=== PATIENT | male | born 1940 | race Caucasian/White ===

== ENCOUNTER → 2018-03-15 | Outpatient (CLI) | payer MEDICARE, OTHER ==
[~2018-03-15] MED LIST: IOPAMIDOL 370 MG/ML 200 ML INFUS..BTL INJ ONE; SODIUM CHLORIDE 0.9% 50ML 50 ML ONE
[2018-03-15 15:45] LABS: BASOPHILS % 0.1 % (0.0-1.0); EOSINOPHILS % 0.4 % (0.0-6.0); HEMATOCRIT 40.5 % (38.2-49.6); HEMOGLOBIN 13.6 g/dL (14.0-18.0); LYMPHOCYTES % 10.5 % (18.0-39.1); MEAN CORPUSCULAR HGB CONC 33.6 g/dL (31-35); MEAN CORPUSCULAR VOLUME 89.4 fL (81-99); MONOCYTES # (AUTO) 0.8 (0.2-0.8); MONOCYTES % 8.9 % (4.4-11.3); NEUTROPHILS # (AUTO) 7.5 (2.1-6.9); NEUTROPHILS % 79.7 % (38.7-80.0); PLATELET COUNT 250 x10e3/uL (140-360); RED BLOOD COUNT 4.53 x10e6/uL (4.3-5.7); RED CELL DISTRIBUTION WIDTH 12.6 % (11.7-14.4)
[2018-03-15 16:09] LABS: ALANINE AMINOTRANSFERASE 15 IU/L (0-55); ALBUMIN 3.9 g/dL (3.5-5.0); ALBUMIN/GLOBULIN RATIO 1.4 (0.8-2.0); ALKALINE PHOSPHATASE 100 IU/L (40-150); ANION GAP 14.1 mmol/L (8-16); BLOOD UREA NITROGEN 13 mg/dL (7-26); BUN/CREATININE RATIO 13 (6-25); CALCIUM 11.2 mg/dL (8.4-10.2); CARBON DIOXIDE 24 mmol/L (22-29); CHLORIDE 105 mmol/L (98-107); CREATININE, SERUM 1.02 mg/dL (0.72-1.25); EST GLOMERULAR FILTRATION RATE > 60 ML/MIN (60-); GLUCOSE 99 mg/dL (74-118); POTASSIUM 4.1 mmol/L (3.5-5.1); SODIUM 139 mmol/L (136-145)
--- NOTE | 2018-03-15 16:57 | Diagnostic Imaging Report ---
EXAMINATION: CT of the chest with contrast, PE protocol. TECHNIQUE: Spiral CT images of the chest were performed from the lung apices through the level of the adrenal glands after the IV administration of 100 cc of Isovue-370. Thin section reconstructions were obtained with special concentration on the pulmonary arteries. COMPARISON: <none> CLINICAL HISTORY:Chest pain DISCUSSION: Examination is limited secondary to patient positioning, he was unable to lie flat on his back so he was scanned in the left lateral decubitus position. Vasculature: The main pulmonary artery, right and left pulmonary arteries, and their visualized lobar and segmental branches are patent, without filling defect. There is no ectasia or aneurysmal dilatation of the thoracic aorta. Great vessel origins are normal in caliber and configuration. The pulmonary outflow tract is of normal caliber. Lungs: Left hemidiaphragmatic elevation. No consolidation, bronchiectasis, or suspicious mass lesion. Lingular and left lower lobe subsegmental atelectasis. Calcified granuloma in the right middle lobe . Airways: Trachea, mainstem bronchi, and central lobar and segmental bronchi are patent. Pleura: <There is no evidence of pleural effusion or pneumothorax.> Heart and mediastinum: No right ventricular dilatation or septal bowing. Prominent epicardial fat without pericardial effusion. Atherosclerotic calcification of the left anterior descending coronary artery. Visualized portions of the thyroid gland are unremarkable. No axillary, hilar, or mediastinal lymphadenopathy. Abdomen: Visualized portions of the liver, gallbladder, spleen, pancreas and left kidney are unremarkable. Bilateral adrenal fullness without discrete nodule Bones and soft tissues: No osseous destructive lesions. Degenerative disc changes of the cervical and thoracic spine. No focal soft tissue abnormalities. IMPRESSION: No CT evidence of pulmonary embolus to the level of the segmental branch pulmonary arteries. Left hemidiaphragmatic elevation with subsegmental atelectasis in the left lower lobe. Atherosclerotic vascular disease. Evidence of prior pulmonary granulomatous infection. Findings were discussed by telephone with Dr. Gayle at 4:50 PM 03/15/2018. Signed by: Dr. Rainer Omalley M.D. on 03/15/2018 4:54 PM
== END ==
LOC: CT 15:03
PROVIDERS: ATTEND Internal Medicine Interventional Cardiology
DX: R07.9 Chest pain, unspecified (principal); I26.99 Other pulmonary embolism without acute cor pulmonale
CPT/HCPCS: 36415; 71260; 80053; 85025; Q9967

== ENCOUNTER 2018-05-31 13:49 | Inpatient (IN) | payer MEDICARE, OTHER ==
[~2018-05-31] VITALS: Ht 180.3 cm; Wt 111.7 kg
--- OUTSIDE RECORDS SUMMARY | 2018-05-31 13:51 | XMS REPORT ---
Author Author [facility] Address Unknown Phone Unavailable Care Team Providers Care Corporate Relations Director Name Role Phone ROHAN JAQUEZ Unavailable Unavailable Problems This patient has no known problems. Allergies, Adverse Reactions, Alerts This patient has no known allergies or adverse reactions. Medications This patient has no known medications. Results Test Description Test Time Test Comments Text Results Atomic Results Result Comments CT CHEST W 2018-03-15 16:41:00 [place] [id number] [place] [id number] Patient Name: LEONARD HAGEN MR #: [id number] : 1940 Age/Sex: 77/M Req #: [id number] Adm Physician: Ordered by: ROHAN JAQUEZ MD Report #: [id number] Location: CT Room/Bed: Procedure: [id number] CT/CT CHEST W Exam Date: 03/15/18 Exam Time: 1600 REPORT STATUS: Signed EXAMINATION: CT of the chest with contrast, PE protocol. TECHN IQUE: Spiral CT images of the chest were performed from the lung apices through the level of the adrenal glands after the IV administration of 100 cc of Isovue-370. Thin section reconstructions were obtained with special concentration on the pulmonary arteries. COMPARISON: <none> CLINICAL HISTORY:Chest pain DISCUSSION: Examination is limited secondary to patient positioning, he was unable to lie flat on his back so he was scanned in the left lateral decubitus position. Vasculature: The main pulmonary artery, right and left pulmonary arteries, and their visualized lobar and segmental branches are patent, without filling defect. There is no ectasia or aneurysmal dilatation of the thoracic aorta. Great vessel origins are normal in caliber and configuration. The pulmonary outflow tract is of normal caliber. Lungs: Left hemidiaphragmatic elevation. No consolidation, bronchiectasis, or suspicious mass lesion. Lingular and left lower lobe subsegmental atelectasis. Calcified granuloma in the right middle lobe . Airways: Trachea, mainstem bronchi, and central lobar and segmental bronchi are patent. Pleura: <There is no evidence of pleural effusion or pneumothorax.> Heart and mediastinum: No right ventricular dilatation or septal bowing. Prominent epicardial fat without pericardial effusion. Atherosclerotic calcification of the left anterior descending coronary artery. Visualized portions of the thyroid gland are unremarkable. No axillary, hilar, or mediastinal lymphadenopathy. Abdomen: Visualized portions of the liver, gallbladder, spleen, pancreas and left kidney are unremarkable. Bilateral adrenal fullness without discrete nodule Bones and soft tissues: No osseous destructive lesions. Degenerative disc changes of the cervical and thoracic spine. No focal soft tissue abnormalities. IMPRESSION: No CT evidence of pulmonary embolus to the level of the segmental branch pulmonary arteries. Left hemidiaphragmatic elevation with subsegmental atelectasis in the left lower lobe. Atherosclerotic vascular disease. Evidence of prior pulmonary granulomatous infection. Findings were discussed by telephone with Dr. Jaquez at 4:50 PM 03/15/2018. Signed by: Dr. Victorino Bartholomew M.D. on 03/15/2018 4:54 PM Dictated By: VICTORINO BARTHOLOMEW MD 53 Transcribed By: FRANCIS on 03/15/181653 COPY TO: ROHAN JAQUEZ MD
--- OUTSIDE RECORDS SUMMARY | 2018-05-31 13:51 | XMS REPORT | Clinical Summary ---
Author Author [facility] Organization [facility] Address Unknown Phone Unavailable Care Team Providers Care Clerk Specialist Name Role Phone Asked, No Pcp PCP Unavailable Allergies Not on File Medications Not on file Active Problems Not on file Immunizations Name Dates Previously Given Next Due FLUZONE HIGH-DOSE PF 12/24/2017 Pneumococcal Conjugate 12/04/2016 13-Valent Social History Date Tobacco Use Types Packs/Day Years Used Never Assessed Sex Assigned at Date Recorded Not on file Industry Job Start Date Occupation Not on file Not on file Not on file Travel End Travel History Travel Start No recent travel history available. Last Filed Vital Signs Not on file Plan of Treatment Health Maintenance Due Date Last Done Comments SHINGLES VACCINES (#1) 12/13/1989 PNEUMOCOCCAL 12/13/2004 POLYSACCHARIDE VACCINE AGE 65 AND OVER 65+ PNEUMOCOCCAL VACCINE 12/04/2017 12/04/2016 (2 of 2 - PPSV23) INFLUENZA VACCINE 09/20/2018 12/24/2017 Results Not on fileafter 05/30/2017 Insurance Payer Benefit Subscriber ID Type Phone Address Plan / Group MEDICARE MEDICARE xxxxxxxxxx Medicare [place], [place] PART A AND B CIGNA CIGNA [place]AL[place] xxxxxxxxx HMO Advance Directives Patient has advance care planning documents on file. For more information, marina garsia contact: Rick Stovall [address] [place] [address]
[2018-05-31] MEDS ORDERED: SODIUM CHLORIDE 0.9% 1000ML 1,000 ML IV STA (13:56)
[2018-05-31 14:09] LABS: BASOPHILS % 0.4 % (0.0-1.0); EOSINOPHILS % 0.4 % (0.0-6.0); HEMATOCRIT 42.6 % (38.2-49.6); HEMOGLOBIN 13.9 g/dL (14.0-18.0); LYMPHOCYTES # (AUTO) 1.1 (1.0-3.2); LYMPHOCYTES % 13.6 % (18.0-39.1); MEAN CORPUSCULAR HEMOGLOBIN 29.4 pg (28-32); MEAN CORPUSCULAR HGB CONC 32.6 g/dL (31-35); MEAN CORPUSCULAR VOLUME 90.3 fL (81-99); MONOCYTES # (AUTO) 0.8 (0.2-0.8); MONOCYTES % 9.9 % (4.4-11.3); NEUTROPHILS # (AUTO) 6.3 (2.1-6.9); NEUTROPHILS % 75.5 % (38.7-80.0); PLATELET COUNT 275 x10e3/uL (140-360); RED BLOOD COUNT 4.72 x10e6/uL (4.3-5.7); RED CELL DISTRIBUTION WIDTH 12.8 % (11.7-14.4)
[2018-05-31 14:18] LABS: INR 1.25; PARTIAL THROMBOPLASTIN TIME 31.7 seconds (23.8-35.5); PROTHROMBIN TIME 16.3 seconds (11.9-14.5)
[2018-05-31 14:20] LABS: ABG HCO3 24 mmol/L (23-28); ABG PCO2 39 mmHg (41-51); ABG PH 7.39 (7.31-7.41); ABG PO2 72 mmHg (80-105)
[2018-05-31 14:30] LABS: ALANINE AMINOTRANSFERASE 11 IU/L (0-55); ALBUMIN 3.7 g/dL (3.5-5.0); ALBUMIN/GLOBULIN RATIO 1.1 (0.8-2.0); ALKALINE PHOSPHATASE 98 IU/L (40-150); ANION GAP 9.7 mmol/L (8-16); BLOOD UREA NITROGEN 13 mg/dL (7-26); BUN/CREATININE RATIO 15 (6-25); CALCIUM 11.2 mg/dL (8.4-10.2); CARBON DIOXIDE 28 mmol/L (22-29); CHLORIDE 104 mmol/L (98-107); CREATINE KINASE 72 IU/L (30-200); CREATININE, SERUM 0.89 mg/dL (0.72-1.25); EST GLOMERULAR FILTRATION RATE > 60 ML/MIN (60-); GLUCOSE 101 mg/dL (74-118); POTASSIUM 4.7 mmol/L (3.5-5.1); SODIUM 137 mmol/L (136-145)
--- NOTE | 2018-05-31 18:15 | Diagnostic Imaging Report ---
EXAMINATION: CT of the chest with contrast, PE protocol. TECHNIQUE: Spiral CT images of the chest were performed from the lung apices through the level of the adrenal glands after the IV administration of 100 cc of Isovue-370. Thin section reconstructions were obtained with special concentration on the pulmonary arteries. Patient is unable to lie flat so the procedure was performed in the decubitus position rendering images less than optimal. DLP: 666.42 mGy-cm COMPARISON: 03/15/2018 CLINICAL HISTORY: Shortness of breath. Patient currently being treated for lower extremity DVT. DISCUSSION: Lungs: No filling defects are identified in the main, right or left pulmonary arteries to their segmental and subsegmental levels, to suggest pulmonary embolism. There is scarring in the left lung base. Calcified granuloma in the right middle lobe again noted. Airways: <The major airways are clear.> Pleura: <There is no evidence of pleural effusion or pneumothorax.> Again noted is the significant elevation of the left hemidiaphragm and volume loss involving the left hemithorax. Heart and mediastinum: <The heart and the mediastinum are normal.> Abdomen: <The visualized parts of the upper abdomen are unremarkable.> Bones and soft tissues: <The thoracic skeleton is normal for age. Degenerative changes of the spine. The soft tissues are unremarkable.> IMPRESSION: No evidence of pulmonary emboli or significant interval change from the prior study. Signed by: Dr. Shailesh Paez DO on 05/31/2018 6:12 PM
[2018-05-31] MEDS ORDERED: MORPHINE SULFATE 2 MG/ML SYR 1ML IV PRN (19:15)
[2018-05-31] MEDS ORDERED: ONDANSETRON HCL INJ 2MG/ML 2ML 2 MG/ML VIAL IV PRN (19:15)
[2018-05-31] MEDS ORDERED: NITROGLYCERIN 0.4 MG SUBL SL PRN (19:15)
--- NOTE | 2018-05-31 19:27 | Diagnostic Imaging Report ---
EXAMINATION: CHEST SINGLE (PORTABLE) INDICATION: Shortness of breath ^sob ^[id number] ^1835 ^Y COMPARISON: CT scan 05/31/2018 FINDINGS: TUBES and LINES: None. LUNGS: Perihilar peribronchial hazy opacity could be due to bronchitis. PLEURA: Possible small left pleural effusion. No pneumothorax. HEART AND MEDIASTINUM: The cardiomediastinal silhouette is unremarkable. BONES AND SOFT TISSUES: No acute osseous lesion. Soft tissues are unremarkable. UPPER ABDOMEN: No free air under the diaphragm. IMPRESSION: Perihilar peribronchial hazy opacity could be due to bronchitis. Possible small left pleural effusion Signed by: Dr. Jack Moran M.D. on 05/31/2018 7:24 PM
[2018-05-31] MEDS ORDERED: MORPHINE SULFATE INJ 4 MG/ML INJ 1ML IV PRN (19:30)
[2018-05-31] MEDS: HEPARIN 25,000U/0.45% NS 250ML 1,000 UNIT in Premix Bag 250 ML IV SCH (19:45)
[2018-05-31] MEDS: FAMOTIDINE 20 MG TAB PO SCH (19:47)
--- OUTSIDE RECORDS SUMMARY | 2018-05-31 19:49 | XMS REPORT | Clinical Summary ---
Author Author [facility] Organization [facility] Address Unknown Phone Unavailable Care Team Providers Care Agriculture Research Director Name Role Phone Asked, No Pcp PCP [...] Plan / Group MEDICARE MEDICARE xxxxxxxxxx Medicare [place], [place] PART A AND B CIGNA CIGNA NAL[employer] xxxxxxxxx HMO Advance Directives Patient has advance care planning documents on file. For more information, marina garsia contact: Rick Stovall [address] [place] [address]
--- NOTE | 2018-05-31 20:45 | NUR ---
Pt received from ER. Pt A&O and in no apparent distress. Pt on Heparin drip and tele. All safety measures ensured and pt call fishman near. Pt encouraged to use call fishman for assistance.
[2018-05-31 21:00] VITALS: BP 137/64
[2018-05-31 22:00] VITALS: BP 137/64
--- NOTE | 2018-05-31 22:30 | NUR ---
Pt request aid for sleep. Call placed to Dr. Green. returned call and gave orders for Ambien 10mg po q hs prn.
[2018-05-31] MEDS ORDERED: SODIUM CHLORIDE 0.9% 50ML 50 ML ONE (22:44)
[2018-05-31] MEDS ORDERED: IOPAMIDOL 370 MG/ML 200 ML INFUS..BTL INJ ONE (22:45)
[2018-05-31] MEDS: ZOLPIDEM TARTRATE 10 MG TAB PO PRN (22:47)
[2018-06-01] VITALS (9 sets, daily range): BP systolic 144–188; BP diastolic 67–92
--- NOTE | 2018-06-01 01:19 | Consultation ---
DATE OF CONSULTATION: 05/31/2018 Pulmonary Medicine Consult REASON FOR REFERRAL: Shortness of breath. HISTORY OF PRESENT ILLNESS: Mr. Campa is a pleasant 77-year-old gentleman with shortness of breath. The patient claims he is having worsening dyspnea for the last six weeks. The patient reportedly had a recent DVT noted. It has been gradual onset. The patient is becoming severely dyspneic on walking. He can only walk to the mailbox and back now. 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 The patient denies any gem chest pain at present. For the most part, he was a light smoker in his life. He did have a recent DVT diagnosed. He had a chest CT done on admission showing significant obesity, right hemidiaphragm elevation. I am consulted. No asthma. No allergies. No significant pulmonary illnesses in the past. The patient without large GERD. He has lost 40 pounds in the last six months he says. PAST MEDICAL HISTORY: Hypertension. Deep venous thromboses. 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 MEDICATIONS: Medication list reviewed per the chart record. ALLERGIES: NO KNOWN DRUG ALLERGIES. SOCIAL HISTORY: The patient smoked for seven years, 2.5 packs per day, but quit in 1966. The patient would probably drink about eight drinks per week in the past, but quit long ago. No drug use. 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 FAMILY HISTORY: Noncontributory to this. REVIEW OF SYSTEMS: GENERAL: No malaise. HEENT: No mouth ulcers. ENDOCRINE: No known thyroid disorder. PULMONARY: No hemoptysis. CARDIAC: No recent heart attacks. GI: No constipation. : No blood in the urine. DERMATOLOGIC: No rashes. MUSCULOSKELETAL: Mild arthritis. IMMUNOLOGIC: No known connective tissue disease. NEUROLOGIC: No seizures. OBJECTIVE: VITAL SIGNS: Afebrile, vital signs noted reviewed per the chart record. GENERAL: No acute distress, alert and calm, but he is having tripod a little bit with increased work of breathing. HEENT: Normocephalic, atraumatic. NECK: Supple. Throat midline. LUNGS: Bilateral air entry is moderate, no gem rales, no rhonchi. Some decreased breath sounds at the bases. CARDIOVASCULAR: S1, S2. No murmurs, rubs, or gallops. ABDOMEN: Soft, nontender. EXTREMITIES: No clubbing, no cyanosis, there is 1+ leg edema. INTEGUMENT: No rash. No purpura. LABORATORY DATA: Labs reviewed per the chart record. IMPRESSION AND PLAN: 1. Significant dyspnea, worsened recently. 2. Possible corporal angina, arthrosclerotic vascular disease. 3. Fifteen pack-year smoking history, possible early chronic obstructive pulmonary disease, although less likely. 4. Significant obesity, possible thoracic restriction. 5. Right hemidiaphragm elevation, possible restrictive disorder. 6. History of parathyroid abnormality, not otherwise specified. 7. History of hypertension. 8. History of deep venous thrombosis, on chronic anticoagulation, Xarelto. I agree to have cardiac evaluation and tentatively there is a heart catheterization that is for tomorrow. If no significant coronary artery disease noted, the patient will need a thorough assessment of his metabolic status including thyroid, cortisol, testosterone screening. If these tests are unremarkable, he needs to have dedicated pulmonary function test to assess for restrictive abnormalities and to rule out other abnormalities. Part of the pulmonary assessment could include a V/Q scan based on echocardiographic findings. Furthermore, cardiopulmonary conditioning will be helpful. Thank you very much, Dr. Green for this consult. Please feel free to call me if I can help in any way. MD DAGOBERTO Raymond/INESSA /[id number]
[2018-06-01 03:00] LABS: CREATINE KINASE MB 3.8 ng/mL (0-5.0)
[2018-06-01 03:16] LABS: ANION GAP 11.1 mmol/L (8-16); BLOOD UREA NITROGEN 12 mg/dL (7-26); BUN/CREATININE RATIO 15 (6-25); CALCIUM 10.7 mg/dL (8.4-10.2); CARBON DIOXIDE 26 mmol/L (22-29); CHLORIDE 107 mmol/L (98-107); CHOL/HDL RATIO 3.8 (3.9-4.7); CHOLESTEROL 125 MD/DL (0-199); CREATININE, SERUM 0.79 mg/dL (0.72-1.25); EST GLOMERULAR FILTRATION RATE > 60 ML/MIN (60-); GLUCOSE 97 mg/dL (74-118); HDL CHOLESTEROL 33 MG/DL (40-60); LDL CHOLESTEROL 79 MG/DL (60-130); POTASSIUM 4.1 mmol/L (3.5-5.1); SODIUM 140 mmol/L (136-145); TRIGLYCERIDES 63 MG/DL (0-149)
[2018-06-01 03:47] LABS: FREE THYROXINE INDEX 1.9039 (1.4-3.8); THYROID STIMULATING HORMONE 2.318 uIU/mL (0.350-4.940)
--- NOTE | 2018-06-01 03:48 | NUR ---
Pt PTT 41.2. Per protocol, increased dose by 100 units =11ml/hr. Contacted off site pharmacy to adjust dose but pharmacist unable to change and stated to just write note regarding dosage change. Will ask onsite pharmacy to adjust when they arrive in the am.
[2018-06-01] MEDS: FAMOTIDINE 20 MG TAB PO SCH ×2 (05:03→19:15)
[2018-06-01 07:19] LABS: BASOPHILS % 0.4 % (0.0-1.0); EOSINOPHILS # (AUTO) 0.2 (0.0-0.4); HEMATOCRIT 39.9 % (38.2-49.6); HEMOGLOBIN 12.7 g/dL (14.0-18.0); LYMPHOCYTES # (AUTO) 1.2 (1.0-3.2); LYMPHOCYTES % 16.6 % (18.0-39.1); MEAN CORPUSCULAR HEMOGLOBIN 29.3 pg (28-32); MEAN CORPUSCULAR HGB CONC 31.8 g/dL (31-35); MEAN CORPUSCULAR VOLUME 91.9 fL (81-99); MONOCYTES # (AUTO) 0.9 (0.2-0.8); MONOCYTES % 12.2 % (4.4-11.3); NEUTROPHILS # (AUTO) 5.1 (2.1-6.9); NEUTROPHILS % 68.5 % (38.7-80.0); PLATELET COUNT 227 x10e3/uL (140-360); RED BLOOD COUNT 4.34 x10e6/uL (4.3-5.7); RED CELL DISTRIBUTION WIDTH 12.9 % (11.7-14.4)
--- NOTE | 2018-06-01 07:47 | NUR ---
report given and walking rounds complete
[2018-06-01 07:51] LABS: CREATINE KINASE MB 3.6 ng/mL (0-5.0)
[2018-06-01] MEDS: HEPARIN 25,000U/0.45% NS 250ML 1,000 UNIT in Premix Bag 250 ML IV SCH ×2 (13:37→15:37)
[2018-06-01] MEDS ORDERED: ACETAMINOPHEN 325 MG TAB PO PRN (15:00)
[2018-06-01] MEDS ORDERED: LIDOCAINE HCL 2% LOCAL 20 ML VIAL ONE (16:42)
[2018-06-01] MEDS ORDERED: FENTANYL CITRATE/PF 100MCG/2 ML INJ ONE (16:42)
[2018-06-01] MEDS ORDERED: MIDAZOLAM HCL 2 MG/2 ML VIAL ONE (16:42)
[2018-06-01] MEDS ORDERED: VERAPAMIL HCL 2.5 MG/ML 2 ML VIAL ONE (16:43)
[2018-06-01] MEDS ORDERED: IOPAMIDOL 370 MG/ML 200 ML INFUS..BTL INJ ONE (16:43)
[2018-06-01] MEDS ORDERED: HEPARIN SOD/SOD CHLORIDE 2,000 ML ONE (16:43)
[2018-06-01] MEDS ORDERED: NITROGLYCERIN/D5W 200 MCG/ML 250 ML ONE (16:43)
[2018-06-01] MEDS ORDERED: HEPARIN SOD (PORCINE) 1000 UNIT/ML 30ML ONE (16:43)
[2018-06-01] MEDS ORDERED: SODIUM CHLORIDE 0.9% 1000ML 1,000 ML ONE (16:43)
[2018-06-01] MEDS ORDERED: ONDANSETRON HCL 4 MG ORAL DISINTEGRATING TAB PO PRN (16:45)
[2018-06-01 18:36] LABS: ANION GAP 13.2 mmol/L (8-16); BLOOD UREA NITROGEN 10 mg/dL (7-26); BUN/CREATININE RATIO 12 (6-25); CALCIUM 11.5 mg/dL (8.4-10.2); CARBON DIOXIDE 24 mmol/L (22-29); CHLORIDE 105 mmol/L (98-107); CREATININE, SERUM 0.82 mg/dL (0.72-1.25); EST GLOMERULAR FILTRATION RATE > 60 ML/MIN (60-); GLUCOSE 101 mg/dL (74-118); POTASSIUM 4.2 mmol/L (3.5-5.1); SODIUM 138 mmol/L (136-145)
--- NOTE | 2018-06-01 19:00 | NUR ---
RECEIVED REPORT FROM DAY NURSE. PATIENT IS RESTING COMFORTABLY IN BED. BED IS IN THE LOWEST POSITION AND CALL BROWN IS WITHIN REACH. WILL CONTINUE TO MONITOR PATIENT.
--- NOTE | 2018-06-01 20:06 | Progress Note ---
DATE: 06/01/2018 Pulmonary Medicine Progress Note SUBJECTIVE: Mr. Campa was seen and examined at bedside. He continues with this stable dyspnea compared to yesterday. He is n.p.o. Tentatively, he is consenting for surgery/interventional procedure. REVIEW OF SYSTEMS: No bleeding, no double vision. OBJECTIVE: VITAL SIGNS: Afebrile. Vital signs noted per the chart record. GENERAL: In no acute distress, alert and calm. HEENT: Normocephalic, atraumatic. NECK: Supple. Throat midline. LUNGS: Bilateral air entry, rare rhonchi. CARDIOVASCULAR: S1, S2. No murmurs, rubs, or gallops. ABDOMEN: Soft, nontender. EXTREMITIES: No clubbing, no cyanosis. There is 1+ edema. INTEGUMENT: No rash. No purpura. LABS: 12 BUN, 0.8 creatinine. 7.4 white count, 39 hematocrit, 227 platelets. IMPRESSION AND PLAN: 1. Shortness of breath, not otherwise specified. 2. Former [id number]-rrps smoker, quit long ago. Possible chronic obstructive pulmonary disease. 3. Elevated right hemidiaphragm. Obesity. Possible hypoventilation syndrome. 4. Significant obesity. 5. Hypertension. 6. Possible angina, under evaluation. Remain n.p.o. Heart catheterization shortly. Await TSH test. Await testosterone and cortisol test as well. If there is no easy answer, we will investigate his lung including with spirometry and lung volumes. Empiric treatment for COPD could be considered in the meanwhile, although the patient is waiting for a heart test first. MD DAGOBERTO Raymond/MODL /[id number]
[2018-06-01] MEDS: ZOLPIDEM TARTRATE 10 MG TAB PO PRN (21:24)
--- NOTE | 2018-06-01 21:30 | NUR ---
PATIENTS PTT IS 179. HEPARIN INFUSION WILL BE HELD FOR 60MINUTES PER FACILITY PROTOCOL, THEN RATE WILL BE DECREASED BY 200UNITS/HR AND PTT WILL BE REPEATED IN 6 HOURS.
--- NOTE | 2018-06-01 22:55 | History and Physical ---
HISTORY: A 77-year-old male with past medical history positive for hypertension, history of DVT. Apparently, he has been having shortness of breath over the last two months, which is getting worse every day. Dr. Gayle sent him to the emergency room. He is going to have a cardiac cath today. CT of the chest showed no evidence of any pulmonary embolism. REVIEW OF SYSTEMS: CARDIOVASCULAR: No chest pain or palpitation. RESPIRATORY: He has had shortness of breath. No cough. GASTROINTESTINAL: No nausea, no vomiting, no diarrhea. GENITOURINARY: No frequency. No dysuria. ALLERGIES: HE IS NOT ALLERGIC TO ANY MEDICATION. SOCIAL HISTORY: He used to smoke, he quit several years ago. He does not drink alcohol. PAST MEDICAL HISTORY: Positive for history of hypertension, DVT, and obesity. PHYSICAL EXAMINATION: VITAL SIGNS: Blood pressure 176/76, temperature 96.2, heart rate 71 per minute, respiratory rate 20 per minute, oxygen saturation 97%. HEART: Showed regular rhythm. No murmur or added sound. LUNGS: Clear bilaterally ABDOMEN: Soft. EXTREMITIES: No evidence of cyanosis or hematoma. LABORATORY DATA: BMP, sodium 140, potassium 4.1, chloride 107, CO2 of 26, BUN 12, creatinine 0.79, glucose 97. CBC, white blood count 7.47, hemoglobin 12.7, hematocrit 39.9, platelet count 227,000. PT 16.3, INR 1.25, PTT 31.9. AST 17, ALT 11, total bilirubin 0.5, alkaline phosphatase 98. CT of the chest showed no evidence of pulmonary embolism. Also, EKG was done, it showed evidence of normal sinus rhythm, left . No evidence of any other significant abnormalities. IMPRESSION: 1. Shortness of breath. Rule out cardiac origin for shortness of breath. 2. Hypertension. 3. History of deep vein thrombosis. PLAN OF TREATMENT: The patient is going to continue nitroglycerin 0.5 mg q.5 minutes p.r.n. for chest pain, Pepcid 20 mg twice a day, Zofran 4 mg q.4 hours as needed, Ambien 10 mg at nighttime, morphine 2 mg IV q.3 hours as needed, antihypertensive medications. Also, the patient going to go for cardiac cath today by Dr. Gayle, manager sales training. MD MOMO Rosenberg/INESSA /[id number]
[2018-06-02] VITALS (8 sets, daily range): BP systolic 131–185; BP diastolic 70–81
--- NOTE | 2018-06-02 00:20 | Consultation ---
DATE OF CONSULTATION: 06/01/2018 Cardiology Consultation REASON FOR CONSULTATION: Dyspnea. HISTORY OF PRESENT ILLNESS: This is a 77-year-old man with history of hypertension, who presents with complaints of worsening dyspnea on exertion. The patient reports he has been short of breath for the last few months with progressive shortness of breath in the last month. He has had worsening dyspnea on exertion with activity as well. On Monday, he was mowing his lawn when he became significantly dyspneic. He sat down, attempted to rest, but his dyspnea did not improve. He, therefore, presented to the clinic and was instructed to proceed to the ER for further evaluation. The patient denies any chest pain, but does endorse occasional palpitations. REVIEW OF SYSTEMS: Negative, except as per HPI. PAST MEDICAL HISTORY: 1. Hypertension. 2. Acute right distal posterior tibial vein deep thrombosis. 3. History of parathyroid abnormality, details unclear. PAST SURGICAL HISTORY: Back surgery. ALLERGIES: PLEASE SEE EMR. MEDICATIONS: Please see medication list. SOCIAL HISTORY: Denies alcohol or illicit drugs. He quit smoking in 1966, but did smoke two packs a day for 10 years prior to quitting. FAMILY HISTORY: Denies family history of heart disease. PHYSICAL EXAMINATION: VITAL SIGNS: Temperature 96.7 degrees, pulse 53, respiratory rate 21, blood pressure 168/79, oxygen saturation 97% on 2 L nasal cannula. GENERAL: Well-developed, well-nourished man. HEENT: Normocephalic, atraumatic. Pupils equal. No scleral icterus. NECK: Supple. No thyromegaly or cervical lymphadenopathy. No carotid bruits. LUNGS: Clear to auscultation. No wheezes or crackles. Tachypneic. CARDIOVASCULAR: Normal rate, regular rhythm. No murmur. Normal S1, S2. ABDOMEN: Soft, nontender. EXTREMITIES: 1+ pitting edema. NEUROLOGIC: Nonfocal exam. LABORATORY DATA: WBC 7.47, hemoglobin 12.7, hematocrit 39.9, platelets 227. Sodium 140, potassium 4.1, chloride 107, CO2 26, BUN 12, creatinine 0.79, troponin 0.013. CT chest, no evidence of PE or significant interval change from the prior study. EKG, normal sinus rhythm, cannot rule out inferior infarct, age undetermined. Cannot rule out anterior infarct, age undetermined. IMPRESSION: 1. Dyspnea on exertion. 2. Hypertension. 3. History of right posterior tibial vein deep vein thrombosis, diagnosed in February 2018. RECOMMENDATION: The patient ruled out for myocardial infarction with serial cardiac biomarkers. The patient had echocardiogram performed in the office earlier this year with normal LV size, but moderate concentric left ventricular hypertrophy, normal LV systolic function, EF between 55 and 60%. Estimated RVSP was normal. The patient was offered a cardiac stress test, but the patient declined as he did not feel he would be capable of performing treadmill exercise and he refused pharmacologic stress. Plan to proceed with cardiac catheterization today. Maintain n.p.o. status. Further recommendations pending test results. Thank you for this consult. We will continue to follow. Hawa Chow MD ABS/MODL /[id number]
[2018-06-02] MEDS: HYDRALAZINE HCL 10 MG TAB PO PRN (00:23)
--- NOTE | 2018-06-02 04:10 | NUR ---
PATIENT'S PTT IS 84.6. HEPARIN INFUSION RATE WILL BE DECREASED BY 100UNITS/HR AND PTT WILL BE RECHECKED IN 6HOURS ACCORDING TO FACILITY PROTOCOL.
--- NOTE | 2018-06-02 07:02 | NUR ---
report given to day nurse. patient is resting in bed. call fishman is within reach.
[2018-06-02] MEDS: AMLODIPINE BESYLATE 5 MG TAB PO SCH (08:37)
[2018-06-02] MEDS: FAMOTIDINE 20 MG TAB PO SCH ×2 (08:37→18:27)
--- NOTE | 2018-06-02 11:37 | Progress Note ---
DATE: Cardiology Progress Note SUBJECTIVE: The patient is without any new complaints. However, he continues to endorse some shortness of breath that is worse with exertion. Denies any chest pain or palpitations. OBJECTIVE: VITAL SIGNS: Temperature 96.7, pulse 87, respiratory rate 23, blood pressure 131/79, and oxygen saturation 98% on 2 L nasal cannula. CARDIOVASCULAR MEDICATIONS: Pepcid 20 mg p.o. q.12 hours, amlodipine 5 mg p.o. daily, hydralazine 10 mg q.8 hours p.r.n., heparin IV drip, nitroglycerin 0.4 mg q.5 minutes p.r.n. for chest pain. LABORATORY DATA: PTT 84.4. PHYSICAL EXAMINATION: GENERAL: Alert and oriented x3. Resting comfortably on the side of the bed. Son at the bedside. NECK: Supple. No JVD noted. LUNGS: Diminished breath sounds, posterior lower lobes, otherwise clear to auscultation. No wheezing. No rhonchi or crackles. CARDIOVASCULAR: Regular rate and rhythm. Normal S1, S2. No murmurs noted. ABDOMEN: Rounded, soft, nontender. EXTREMITIES: Lower extremity, 1+ pitting edema. Telemetry, sinus rhythm. IMPRESSION: 1. Dyspnea on exertion. 2. History of a right posterior tibial vein DVT diagnosed in February of 2018. 3. Hypertension. RECOMMENDATIONS: Cardiac enzymes have ruled out acute coronary syndrome at this point. The patient had an echocardiogram performed in our office early this year with normal LV size, but moderate concentric left ventricular hypertrophy, normal LV systolic function, EF noted to be 55%-60%. Right ventricular systolic pressures were normal. Plan to proceed with cardiac catheterization on Monday, the this time with Anesthesia. Attempt of left heart catheterization was done yesterday, however, the patient was not able to tolerate to lay down. He will be on n.p.o. status on Monday night. Continue to monitor on telemetry. Continue care with catering administrative assistant. We will continue to follow very closely. Dictated by Annabella Amaya NP MD ODILIA Young/INESSA /[id number]
--- NOTE | 2018-06-02 11:45 | NUR ---
Requested inpatient order, as pt was too unstable for heart cath 06/01. To have heart cath Sunday 06/04. Awaiting reply.
--- NOTE | 2018-06-02 12:20 | NUR ---
RECEIVED INPATIENT ORDER
[2018-06-02] MEDS ORDERED: FUROSEMIDE INJ 10 MG/ML 4 ML VIAL IV ONE (15:00)
--- NOTE | 2018-06-02 16:08 | Progress Note ---
DATE: Internal Medicine Progress Note SUBJECTIVE: The patient is still complaining of shortness of breath. OBJECTIVE: VITAL SIGNS: Blood pressure 131/79, temperature 96.7, heart rate 63 per minute, respiratory rate 20 per minute, and oxygen saturation 97%. HEART: Regular rhythm. No murmur or added sound. LUNGS: Clear bilaterally. ABDOMEN: Soft. EXTREMITIES: Show no evidence of cyanosis, edema, or trauma. LABORATORY DATA: On the BMP; sodium 138, potassium 4.2, chloride 105, CO2 24, BUN 10, creatinine 0.82, glucose 101. On the CBC, white blood count 7.47, hemoglobin 12.7, hematocrit 39.9, and platelet count 227,000. PT 16.3, INR 1.25, PTT 34.7. FINAL IMPRESSION: 1. Episode of shortness of breath of unclear etiology, rule out coronary artery disease. 2. Hypertension. 3. Deep vein thrombosis of the legs. 4. Obesity. 5. Hypercalcemia, which apparently he has been diagnosed before. PLAN OF TREATMENT: We are going to give normal saline at 175 mL an hour. We are going to give Lasix 40 mg IV one time. Repeat BMP tomorrow. PTH is going to be ordered. Also consult Dr. Valera from Endocrinology. Continue on Norvasc 5 mg daily, hydralazine 10 mg q.8 hours as needed, and Ambien 10 mg at night p.r.n. for sleep. We are going to start him on lisinopril 10 mg daily. Cardiac cath on Monday. MD MOMO Rosenberg/INESSA /[id number]
[2018-06-02] MEDS: HEPARIN 25,000U/0.45% NS 250ML 1,000 UNIT in Premix Bag 250 ML IV SCH ×3 (16:14→23:26)
[2018-06-02] MEDS: SODIUM CHLORIDE 0.9% 1000ML 1,000 ML IV SCH (16:32)
[2018-06-02] MEDS: LISINOPRIL 10 MG TAB PO SCH (16:32)
[2018-06-02 18:57] LABS: FREE T4 (FREE THYROXINE) 1.06 ng/dL (0.9-1.8); THYROID STIMULATING HORMONE 1.935 uIU/mL (0.350-4.940)
--- NOTE | 2018-06-02 20:40 | Progress Note ---
DATE: 06/02/2018 Internal Medicine Progress Note. SUBJECTIVE: Mr. Campa was seen and examined at bedside. He is eating well. He had a bowel movement. He is on heparin IV at this time. We were not able to do left heart catheterization yesterday as he was feeling restless. REVIEW OF SYSTEMS: No bleeding, no diarrhea. OBJECTIVE: VITAL SIGNS: Afebrile, vital signs noted per the chart record. GENERAL: In no acute distress. Alert and calm. HEENT: Normocephalic, atraumatic. NECK: Supple. Throat midline. LUNGS: Bilateral air entry, decreased breath sounds at the bases. CARDIOVASCULAR: S1, S2. No murmurs, rubs, or gallops. ABDOMEN: Soft, nontender. EXTREMITIES: No clubbing, no cyanosis. There is 1+ edema. INTEGUMENT: No rash. No purpura. LABORATORY DATA: No new updates. IMPRESSION AND PLAN: 1. Shortness of breath. Under investigation. 2. for possible acute coronary syndrome/stable angina. 3. Obesity, morbid. 4. Elevated right hemidiaphragm. 5. Obstructive sleep apnea, possible. 6. A 21-gfcc-lyio smoker, can't rule out concomitant airway dysfunction. 7. Allergies, can't rule out asthma. Continue at this time. Await left heart catheterization. The patient will have continued followup of some of the hormonal indices. If between the heart evaluation and the hormonal indices, there is no easy explanation of patient's dyspnea, then consideration for a detailed lung evaluation will be indicated. Continue heparin IV per facs teacher. We wait progress in left heart catheterization results. If patient had difficulty laying flat, then he may need BiPAP or anesthesia support for any heart catheterization as deemed necessary by Anesthesia. MD DAGOBERTO Raymond/INESSA /[id number]
[2018-06-02] MEDS: ZOLPIDEM TARTRATE 10 MG TAB PO PRN (23:26)
--- NOTE | 2018-06-02 23:47 | NUR ---
patients ptt is 69.3. will repeat ptt in 6 hours according to facility protocol.
--- NOTE | 2018-06-03 00:11 | Consultation ---
DATE OF CONSULTATION: 06/02/2018 Endocrine Consultation This is the patient of Dr. Green. Thank you very much for referring this patient. HISTORY OF PRESENT ILLNESS: This is a 77-year-old white male gentleman, who is referred to me for evaluation of hypercalcemia. According to the patient, he was diagnosed of hypercalcemia about 6 to 8 months back. He was seen by another loading unit operator and was told that the patient has hyperparathyroidism. The patient was advised followup only. At this time, the patient comes to the hospital with history of shortness of breath, which is getting progressively worse. The patient is admitted to the hospital for further evaluation. The patient also has history of hypertension. He is a nonsmoker. He is being evaluated for coronary artery disease. The patient is a nonsmoker. His other routine medications at home include hydralazine for hypertension and ramipril. He is also on amlodipine 5 mg once daily. The patient does not have any history of kidney stones and no family history of hypercalcemia. PHYSICAL EXAMINATION: GENERAL: Today, the patient is alert, awake, little bit apprehensive, is moderately overweight. VITAL SIGNS: His heart rate is around 78, blood pressure is 185/81 mmHg. HEENT: Essentially unremarkable. Thyroid is palpable. Clinically, he is near euthyroid. CHEST: Bilateral vesicular breathing. He has mild bronchospasm. CARDIAC: First and second heart sounds. There is no third or fourth heart sound. . EXTREMITIES: The patient has evidence of mild pedal edema. LABORATORY DATA: Calcium levels are 11.5. His BUN and creatinine are 10 and 0.82. CLINICAL IMPRESSION: 1. Hypercalcemia, probably related to hyperparathyroidism. 2. Shortness of breath, rule out chronic obstructive pulmonary disease. 3. Coronary artery disease, rule out congestive cardiac failure and hypertension. PLAN: The plan at this time is to do serum PTH and ionized calcium. Monitor his calcium levels for now. The patient is being evaluated by the Pulmonary and the cardiac workup is in progress. Thanks again for referring this patient. I will be following this patient with you. MD ROGELIO Menjivar/INESSA /[id number]
[2018-06-03 04:10] VITALS: BP 172/73
--- NOTE | 2018-06-03 05:34 | NUR ---
patients ptt is 63.8. ptt will be rechecked daily from now on in line with facility protocols.
[2018-06-03 06:31] LABS: ANION GAP 9.5 mmol/L (8-16); BLOOD UREA NITROGEN 11 mg/dL (7-26); BUN/CREATININE RATIO 13 (6-25); CALCIUM 10.9 mg/dL (8.4-10.2); CARBON DIOXIDE 28 mmol/L (22-29); CHLORIDE 104 mmol/L (98-107); CREATININE, SERUM 0.83 mg/dL (0.72-1.25); EST GLOMERULAR FILTRATION RATE > 60 ML/MIN (60-); GLUCOSE 88 mg/dL (74-118); POTASSIUM 3.5 mmol/L (3.5-5.1); SODIUM 138 mmol/L (136-145)
--- NOTE | 2018-06-03 06:56 | NUR ---
report given to day nurse. patient is resting comfortably in bed. bed is in lowest position and call light is within reach.
[2018-06-03 08:34] VITALS: BP 148/84
[2018-06-03] MEDS: ESCITALOPRAM OXALATE 10 MG TAB PO SCH (08:48)
[2018-06-03] MEDS: AMLODIPINE BESYLATE 5 MG TAB PO SCH (08:48)
[2018-06-03] MEDS: FAMOTIDINE 20 MG TAB PO SCH ×2 (08:48→18:45)
[2018-06-03] MEDS: LISINOPRIL 10 MG TAB PO SCH (08:49)
[2018-06-03] MEDS ORDERED: RAMIPRIL 5 MG CAP PO SCH (09:00)
[2018-06-03 09:01] VITALS: BP 148/84
[2018-06-03] MEDS ORDERED: BUSPIRONE HCL 5 MG TAB PO PRN (12:30)
[2018-06-03] MEDS: SODIUM CHLORIDE 0.9% 1000ML 1,000 ML IV SCH (12:35)
--- NOTE | 2018-06-03 12:57 | Progress Note ---
DATE: Internal Medicine Progress Note SUBJECTIVE: A 77-year-old male came in with shortness of breath. He has elevated left hemidiaphragm, but no evidence of any pulmonary embolism. We need to rule out any cardiac source of his shortness of breath. Dr. Gayle will do a cardiac cath tomorrow. The patient is having a lot of anxiety. We are going to be get his anxiety medication. PHYSICAL EXAMINATION: VITAL SIGNS: Blood pressure is 148/84, temperature 36.9, heart rate 82 per minute, respiratory rate 22 per minute, oxygen saturation 95%. HEART: Showed regular rhythm. No murmur or added sound. LUNGS: Clear bilaterally. LABORATORY DATA: On BMP; sodium 138, potassium 3.5, chloride 104, CO2 28, BUN 11, creatinine 0.83, glucose 88. On the CBC, white blood count 7.47, hemoglobin 12.7, hematocrit 39.9, platelet count 227,000. PT 16.3, INR 1.25, PTT 63.8. AST 17, ALT 11, total bilirubin 0.5, alkaline phosphatase of 98. FINAL IMPRESSION: 1. Episode of shortness of breath of unclear etiology. Rule out coronary artery disease. Elevated left hemidiaphragm might play a role on that. 2. Hypertension. 3. History of deep vein thrombosis in the legs. 4. Obesity. 5. Hypercalcemia, most likely secondary to hyperparathyroidism. PLAN OF TREATMENT: The patient is going for cardiac cath tomorrow. Continue amlodipine 5 mg daily, Lexapro 10 mg daily, hydralazine 10 mg IV q.8 hours as needed, morphine 2 mg IV q.3 hours as needed, Pepcid 20 mg twice a day, lisinopril 10 mg daily, Tylenol 325 mg q.4 hours as needed, Zofran 4 mg IV q.4 hours as needed, Ambien 10 mg at night p.r.n. for sleep and also we are going to give him some BuSpar 5 mg q.8 hours as needed for anxiety. MD MOMO Rosenberg/INESSA /[id number]
[2018-06-03 13:08] VITALS: BP 182/76
--- NOTE | 2018-06-03 15:35 | NUR ---
CALLED AND SPOKE TO MARIA TERESA QUEEN REGARDING PARATHYROID SCAN, HE DOES NOT WANT IT STAT SO IT OKAY TO WAIT TO TO THE SCAN UNTIL 06/03/18.
[2018-06-03] MEDS: HYDRALAZINE HCL 10 MG TAB PO PRN (16:26)
[2018-06-03 16:38] VITALS: BP 199/92
[2018-06-03] MEDS: CLONAZEPAM 1 MG TAB PO PRN ×2 (17:10→23:38)
--- NOTE | 2018-06-03 19:00 | NUR ---
received report from day nurse. patient is resting comfortably in bed. bed is in lowest position and call fishman is within reach. will continue to monitor patient.
--- NOTE | 2018-06-03 19:00 | NUR ---
patients heparin drip has been stopped in preparation for heart catherization procedure that is planned for the morning.
--- NOTE | 2018-06-03 19:44 | Progress Note ---
DATE: 06/03/2018 Pulmonary Medicine Progress Note SUBJECTIVE: Mr. Campa was seen and examined at bedside. 3 L/minute by nasal cannula oxygen. Heparin IV. Normal saline at 75 mL/h. The patient continues with slow progress. Some anxiety is cited. REVIEW OF SYSTEMS: No headache, no rash. OBJECTIVE: VITAL SIGNS: Afebrile, vital signs noted per the chart record. GENERAL: In no acute distress, alert and calm. HEENT: Normocephalic, atraumatic. NECK: Supple. Throat midline. LUNGS: Bilateral air entry with decreased breath sounds at the bases. CARDIOVASCULAR: S1, S2. No murmurs, rubs, or gallops. ABDOMEN: Soft, nontender. EXTREMITIES: No clubbing, no cyanosis. There is 1+ edema. INTEGUMENT: No rash. No purpura. LABORATORY DATA: 3.5 potassium, 0.8 creatinine. 8 white count, 39 hematocrit. IMPRESSION AND PLAN: 1. Shortness of breath, multifactorial. 2. Obesity, possible obesity and early hypoventilation. 3. Former [id number] smoking, possible chronic obstructive pulmonary disease. 4. History of seasonal allergies, possible asthma. 5. Anxiety. 6. acute coronary syndrome. Continue heparin IV. The patient to go for heart catheterization tomorrow with anesthesia support to help him lie flat. The patient with normal TSH so far. Testosterone level remains pending at this time as well as cortisol level. We will consider need for pulmonary function testing done. MD DAGOBERTO Raymond/MODL /[id number]
[2018-06-03 20:00] VITALS: BP_SYST 184; BP_SYST 186; BP_DIAS 81
[2018-06-03] MEDS: ZOLPIDEM TARTRATE 10 MG TAB PO PRN (23:38)
[2018-06-04] VITALS (11 sets, daily range): BP systolic 139–188; BP diastolic 69–91
--- NOTE | 2018-06-04 05:30 | NUR ---
son states father has finally fallen asleep and does not want to disturb him. son is requesting that hibiclens bath be pushed back a little more.
[2018-06-04] MEDS: CLONAZEPAM 1 MG TAB PO PRN ×2 (06:35→14:20)
[2018-06-04] MEDS: HYDRALAZINE HCL 10 MG TAB PO PRN (06:35)
--- NOTE | 2018-06-04 06:57 | NUR ---
report given to day nurse. patient is resting comfortably in bed. bed is in lowest position and call light is within reach.
[2018-06-04] MEDS ORDERED: SODIUM CHLORIDE 0.9% 1000ML 1,000 ML ONE (07:15)
[2018-06-04] MEDS ORDERED: LIDOCAINE HCL 2% LOCAL 20 ML VIAL ONE (07:15)
[2018-06-04] MEDS ORDERED: HEPARIN SOD/SOD CHLORIDE 2,000 ML ONE (07:15)
[2018-06-04] MEDS ORDERED: HEPARIN SOD (PORCINE) 1000 UNIT/ML 30ML ONE (07:15)
[2018-06-04] MEDS ORDERED: NITROGLYCERIN/D5W 200 MCG/ML 250 ML ONE (07:15)
[2018-06-04] MEDS: FAMOTIDINE 20 MG TAB PO SCH (07:15)
[2018-06-04] MEDS ORDERED: IOPAMIDOL 370 MG/ML 200 ML INFUS..BTL INJ ONE (07:15)
--- NOTE | 2018-06-04 07:27 | NUR ---
patient leaving the unit for Cath procedure, alert and oriented and on hospital bed. Sons at bedside
[2018-06-04] MEDS ORDERED: VERAPAMIL HCL 2.5 MG/ML 2 ML VIAL ONE (08:04)
--- NOTE | 2018-06-04 08:45 | Progress Note ---
DATE: Cardiology Progress Note SUBJECTIVE: The patient is without any new complaints this morning. He does still endorse some shortness of breath, but denies any calf pain. CARDIOVASCULAR MEDICATIONS: Lisinopril 10 mg p.o. daily, 5 mg of amlodipine p.o. daily, Pepcid 20 mg q.12 hours, heparin IV drip, hydralazine 10 mg q.8 hours p.r.n. for blood pressure, nitroglycerin as needed for chest pain. PTT 63.8. OBJECTIVE: VITAL SIGNS: Temperature 96.9, pulse 82, respiratory rate 22, blood pressure 148/84, oxygen saturation 95% on room air. GENERAL: Alert and oriented x3. Resting comfortably on the side of the bed. Does not appear to be in any acute distress. NECK: Supple. No JVD noted. CARDIOVASCULAR: Regular rate and rhythm. Normal S1, S2. No murmurs, no gallops noted. LUNGS: Diminished breath sounds posterior lower lobes, otherwise clear to auscultation. No wheezing. No rhonchi or crackles. ABDOMEN: Rounded, nontender. EXTREMITIES: Lower extremities; trace edema bilaterally. LABORATORY DATA: Telemetry; sinus rhythm with infrequent PVCs. IMPRESSION: 1. Hypertension. 2. History of right posterior tibial deep venous thrombosis in February of 2018. 3. Dyspnea on exertion. RECOMMENDATIONS: Cardiac enzymes have ruled out acute coronary syndrome. Echocardiogram recently obtained in our office this year with normal LV function, but moderate left ventricular hypertrophy. EF noted to be 55 to 60. Right ventricular systolic pressures were normal. Plan is to proceed with left heart catheterization on Monday the with Anesthesia on board. N.p.o. at midnight. Discontinue heparin drip 12 hours prior to procedure. Repeat PTT after. We will continue to monitor the patient. Dictated by THEO SMITH, CHARISSE MD JACQUELINE Young/INESSA /[id number]
[2018-06-04] MEDS ORDERED: LISINOPRIL 20 MG TAB PO SCH (10:00)
--- NOTE | 2018-06-04 10:15 | NUR ---
report received from Joslyn, patient groggy, but answering appropriately. Vital signs are stable. Right wrist used for cath procedure, with no interventions done, no hematoma or drainage noted. Patient will return to floor via hospital bed with family at bedside.
[2018-06-04] MEDS: ESCITALOPRAM OXALATE 10 MG TAB PO SCH (10:30)
[2018-06-04] MEDS: AMLODIPINE BESYLATE 5 MG TAB PO SCH (10:30)
--- NOTE | 2018-06-04 12:00 | NUR ---
patient POC glucose in lab report is not for this patient, disregard.
--- NOTE | 2018-06-04 14:00 | NUR ---
patient leaving the unit via wheelchair to nuclear medicine for scan, alert and oriented. family at bedside.
--- NOTE | 2018-06-04 14:52 | Progress Note ---
DATE: 06/04/2018 Cardiology Progress Note SUBJECTIVE: The patient was sedated after cath. No history could be obtained. OBJECTIVE: VITAL SIGNS: Temperature 98.4 degrees, pulse 86, respiratory 16, blood pressure 154/78, oxygen saturation 100% on 3 L nasal cannula. GENERAL: Well-developed, well-nourished man, sedated. LUNGS: Clear to auscultation bilaterally. No wheeze or crackles. CARDIOVASCULAR: Normal rate, regular rhythm. No murmur. Normal S1, S2. ABDOMEN: Soft, nontender. EXTREMITIES: No edema. CARDIAC MEDICATIONS: Lisinopril 20 mg p.o. daily, amlodipine 5 mg p.o. daily. LABORATORY DATA: None today. TELEMETRY: Normal sinus rhythm. IMPRESSION: 1. Hypertension. 2. History of right posterior tibial vein DVT in February 2018. 3. Dyspnea on exertion. RECOMMENDATION: The patient ruled out for myocardial infarction with serial cardiac biomarkers. Echocardiogram demonstrated normal LV function, but moderate LVH at the office. EF was 55% to 60%. RV pressures were normal. The patient's cardiac catheterization was without significant coronary artery disease, but hyperdynamic LV. We will discontinue amlodipine and start his verapamil. No further cardiac evaluation is indicated at this time. Thank you for this consult. We will continue to follow. Hawa Chow MD ABS/MODL /[id number]
--- NOTE | 2018-06-04 15:03 | NUR ---
patient returned to the floor via wheelchair, alert and oriented with family at bedside.
[2018-06-04] MEDS ORDERED: CLONAZEPAM 1 MG TAB PO PRN (15:45)
--- NOTE | 2018-06-04 16:30 | NUR ---
patient evaluated for the need of home oxygen, however patient refused to ambulate for respiratory therapist. Patient and family was re-educated on the purpose of the home O2 evaluation, and they verbalized understanding.
[2018-06-04] MEDS ORDERED: HYDRALAZINE HCL 25 MG TAB PO SCH ×2 (17:00→21:00)
[2018-06-04] MEDS ORDERED: LISINOPRIL10 MG PO (17:11)
[2018-06-04] MEDS ORDERED: VERAPAMIL ER120 MG PO (17:11)
[2018-06-04] MEDS ORDERED: KLONOPIN2 MG PO (17:12)
[2018-06-04] MEDS ORDERED: PHENYLEPHRINE HCL 1% 10 MG/ML VIAL ONE (17:36)
[2018-06-04] MEDS ORDERED: LIDOCAINE HCL 2% LOCAL INJ 5 ML SDV VIAL INJ ONE (17:36)
[2018-06-04] MEDS ORDERED: VASOPRESSIN INJ 20 UNIT/ML VIAL ONE (17:36)
[2018-06-04] MEDS ORDERED: PROPOFOL IV EMULSION 10 MG/ML 20 ML VIAL ONE (17:36)
--- NOTE | 2018-06-04 17:40 | NUR ---
patient alert and oriented with sons at bedside. Discharge instructions given to patient at this time, verbalized understanding. IV discontinued, catheter in tact and pressure dressing applied. patient to be wheeled out to personal auto for sons to drive home.
--- NOTE | 2018-06-05 03:05 | Progress Note ---
DATE: 06/04/2018 SUBJECTIVE: Mr. Campa was seen and examined at bedside. encouraged him after left heart catheterization findings. Left heart catheterization performed via right arterial insertion site. No complications. A 10-20% coronary artery disease maximum, mostly clear coronaries. Greater than 70% LVEF. The patient able to start eating and after. REVIEW OF SYSTEMS: No headaches. OBJECTIVE: VITAL SIGNS: Afebrile, vital signs noted per the chart record. GENERAL: In no acute distress, alert and calm. HEENT: Normocephalic, atraumatic. NECK: Supple. Throat midline. LUNGS: Bilateral air entry, limited air entry, especially at the bases. CARDIOVASCULAR: S1, S2. No murmurs, rubs, or gallops. ABDOMEN: Soft, nontender. EXTREMITIES: No clubbing, no cyanosis. There is 1+ edema. INTEGUMENT: No rash. No purpura. LABORATORY DATA: Potassium 2.5, creatinine 0.8. White count 8, hematocrit 39. IMPRESSION AND PLAN: 1. Dyspnea, probably multifactorial. 2. Morbid obesity. 3. Significant right hemidiaphragm elevation. 4. Possible hypoventilation obesity syndrome. 5. Hypoxemia. 6. Anxiety component. 7. History of thyroid abnormality. Await test of hormonal access. Home oxygen evaluation. Of note, patient may be refusing to walk with therapist. I reassured him regarding his coronary findings, which are excellent. Consideration may need to go for parathyroid removal. The patient did smoke 15-pack years. We will need outpatient PFTs. He will follow up as an outpatient. MD DAGOBERTO Raymond/MODL /[id number]
--- NOTE | 2018-06-05 06:11 | Discharge Summary ---
HISTORY OF PRESENT ILLNESS: This is a 77-year-old male with past medical history positive for hypertension and history of DVT, came here with shortness of breath, which has been going on for months. Dr. Gayle did a cardiac cath, came back negative. He has only very minimal coronary artery disease. The CT of the abdomen showed evidence of elevated left hemidiaphragm including with volume loss on the left hemithorax and hypertension, which now is 130/80 much better the patient continued clonazepam. The patient has also anxiety. PHYSICAL EXAMINATION: HEART: Showed regular rhythm. Normal S1, S2 sound. LUNGS: Clear bilaterally. ABDOMEN: Soft. Oxygen saturation on room air is 95% and 100% oxygen also on [address] Vega has been consulted from pulmonary point of view, Dr. Gayle from the cardiology point of view. The patient is going home today after the nuclear medicine test for the parathyroid. He was incidentally found to have hyperparathyroidism, which he was diagnosed long time ago, but he never really followed up. FINAL IMPRESSION: 1. Shortness of breath, most likely secondary to elevated left hemidiaphragm. 2. Mild coronary artery disease. 3. Essential hypertension. 4. Obesity. 5. History of deep vein thrombosis. PLAN OF TREATMENT: The patient going to be discharged home after nuclear medicine test for the parathyroid on the following medications. He is going to be on lisinopril 20 mg daily. He is going to be on verapamil 240 mg daily, Klonopin 2 mg q.8 hours as needed for anxiety. Follow up with Dr. Diogenes Dietrich, his primary care physician. oxygen is 95% on room air. He refused to do the walking test for the oxygen. He was . Discharge followup with Dr. Valera, irs agent, and Dr. Vega for Pulmonary. Discharge if okay with the consultants. MD MOMO Rosenberg/INESSA /[id number]
[2018-06-05] MEDS ORDERED: VERAPAMIL HCL 120 MG TABSR PO SCH (09:00)
--- NOTE | 2018-06-05 10:57 | Operative Report ---
DATE OF PROCEDURE: 06/04/2018 SURGEON: Fermin Gayle MD CARDIAC MENS LOCKER ROOM ATTENDANT PROCEDURE NOTE INDICATION: Coronary artery disease, abnormal with unstable angina and congestive heart failure. PROCEDURES PERFORMED: 1. Left heart catheterization, selective coronary angiography, left ventriculography. 2. Deployment of right wrist TR band. COMPLICATIONS: None. RECOMMENDATIONS: Medical therapy, noncardiac etiology of dyspnea. DESCRIPTION OF PROCEDURE: The patient was administered general anesthesia. The radial artery was accessed using ultrasound guidance. A 5-Citizen Of [place] sheath was placed. Coronary angiography demonstrated minimal coronary artery disease, less than 10% luminal irregularities. No critical stenosis or occlusions. LV ejection fraction greater than 70%. No gradient across aortic valve pullback. LV end-diastolic pressure of 10. Guide and sheath were removed. TR band applied. The patient was transferred to the postoperative care unit in stable condition. MD CORINNE Young/MODL /[id number]
--- NOTE | 2018-06-05 13:51 | NUR ---
Per Dr Valera, patient was called to be reminded to make an appointment with Dr Valera. Per patient and son, and appointment has been made with primary care and a parathyroid scan has been ordered by Dr Dietrich and they do not want to schedule an appointment with Dr Valera because they believe they are in a "good place" right now.
== END 2018-06-04 17:53 | disposition home or self-care (01) | DRG 206 ==
LOC: ER 13:49 → ERHOLD 19:47 → IMCU 20:45 → OBSVTOIN 06-02 12:18
PROVIDERS: ADMIT Internal Medicine; ATTEND Internal Medicine
PROC: 4A023N7 Measurement of Cardiac Sampling and Pressure, Left Heart, Percutaneous Approach (ICD-10-PCS; principal; 2018-06-04)
PROC: B2111ZZ Fluoroscopy of Multiple Coronary Arteries using Low Osmolar Contrast (ICD-10-PCS; 2018-06-04)
PROC: B2151ZZ Fluoroscopy of Left Heart using Low Osmolar Contrast (ICD-10-PCS; 2018-06-04)
CPT/HCPCS: 36415; 36600; 71045; 71260; 80048; 80053; 80061; 82330; 82533; 82550; 82553; 82805; 82948; 83036; 83880; 83970; 84403; 84436; 84439; 84443; 84479; 84484; 85025; 85379; 85610; 85730; 93005; 93458; 96360; 99284; C1769; C1887; G0378; J1644; J1940; J2001; J2250; J2370; J7030; Q9967

== ENCOUNTER → 2018-06-08 | Outpatient (CLI) | payer MEDICARE, OTHER ==
[~2018-06-08] MED LIST changes: -IOPAMIDOL 370 MG/ML 200 ML INFUS..BTL INJ ONE; +KLONOPIN2 MG PO; +LISINOPRIL10 MG PO; -SODIUM CHLORIDE 0.9% 50ML 50 ML ONE; +VERAPAMIL ER120 MG PO
--- NOTE | 2018-06-09 13:19 | Diagnostic Imaging Report ---
Parathyroid Scan with SPECT Reason for exam: Primary hyperparathyroidism Radiopharmaceutical: Tc-99m sestamibi 25 mCi After intravenous administration of the radiopharmaceutical, immediate and 2-hour planar images of the neck and upper chest were obtained. Tomographic images of the neck and upper chest were not obtained due to the patient's extreme claustrophobia, unabated with pre-treatment with 1 mg of clonazepam. Claustrophobia also interfered with ideal positioning for the planar images. Distribution of tracer activity appears physiologic throughout the neck and upper chest on the initial and delayed planar images. No focal areas of increased tracer accumulation are identified. On the delayed planar images, washout of tracer from the thyroid is complete with no focal areas of persistent tracer activity. Impression: Negative parathyroid scan No enlarged hypermetabolic parathyroid glands are identified. Signed by: Dr. Asha Still M.D. on 06/09/2018 1:16 PM
== END ==
LOC: NM 13:55
PROVIDERS: ATTEND Family Medicine
DX: E21.0 Primary hyperparathyroidism (principal)
CPT/HCPCS: 78070; A9500

== ENCOUNTER 2018-07-17 14:58 | Inpatient (IN) | payer MEDICARE, OTHER ==
[~2018-07-17] VITALS: Ht 180.3 cm; Wt 115.0 kg
--- OUTSIDE RECORDS SUMMARY | 2018-07-17 15:01 | XMS REPORT | Clinical Summary ---
Author Author [facility] Organization [facility] Address Unknown Phone Unavailable Care Team Providers Care Tunnel Kiln Firer Name Role Phone Asked, No Pcp PCP [...] VACCINE 09/20/2018 12/24/2017 Results Not on fileafter 07/16/2017 Insurance Type Payer Benefit Subscriber ID Effective Phone Address Plan / Dates Group Medicare MEDICARE MEDICARE xxxxxxxxxx 2004- RICK, PART A AND Present [place] B [place] CIG[employer]QUEL MENDEZ [facility] xxxxxxxxx 2016- Present Advance Directives Patient has advance care planning documents on file. For more information, marina garsia contact: Rick Stovall [address] [place] [address]
[2018-07-17 16:33] LABS: BASOPHILS % 0.1 % (0.0-1.0); EOSINOPHILS # (AUTO) 0.1 (0.0-0.4); EOSINOPHILS % 0.6 % (0.0-6.0); HEMATOCRIT 33.7 % (38.2-49.6); HEMOGLOBIN 11.2 g/dL (14.0-18.0); LYMPHOCYTES # (AUTO) 0.8 (1.0-3.2); LYMPHOCYTES % 7.7 % (18.0-39.1); MEAN CORPUSCULAR HEMOGLOBIN 30.1 pg (28-32); MEAN CORPUSCULAR HGB CONC 33.2 g/dL (31-35); MEAN CORPUSCULAR VOLUME 90.6 fL (81-99); MONOCYTES # (AUTO) 1.2 (0.2-0.8); MONOCYTES % 11.6 % (4.4-11.3); NEUTROPHILS # (AUTO) 8.4 (2.1-6.9); NEUTROPHILS % 79.5 % (38.7-80.0); PLATELET COUNT 275 x10e3/uL (140-360); RED BLOOD COUNT 3.72 x10e6/uL (4.3-5.7); RED CELL DISTRIBUTION WIDTH 13.2 % (11.7-14.4)
[2018-07-17 16:43] LABS: INR 1.85
[2018-07-17 16:44] LABS: PARTIAL THROMBOPLASTIN TIME 46.9 seconds (23.8-35.5)
[2018-07-17 16:53] LABS: ALANINE AMINOTRANSFERASE 7 IU/L (0-55); ALBUMIN 3.1 g/dL (3.5-5.0); ALKALINE PHOSPHATASE 92 IU/L (40-150); ANION GAP 10.3 mmol/L (8-16); BLOOD UREA NITROGEN 25 mg/dL (7-26); BUN/CREATININE RATIO 21 (6-25); CALCIUM 11.7 mg/dL (8.4-10.2); CARBON DIOXIDE 28 mmol/L (22-29); CHLORIDE 102 mmol/L (98-107); CREATINE KINASE 31 IU/L (30-200); CREATININE, SERUM 1.19 mg/dL (0.72-1.25); EST GLOMERULAR FILTRATION RATE 59 ML/MIN (60-); GLUCOSE 113 mg/dL (74-118); POTASSIUM 4.3 mmol/L (3.5-5.1); SODIUM 136 mmol/L (136-145)
[2018-07-17] MEDS ORDERED: FUROSEMIDE INJ 10 MG/ML 4 ML VIAL IV NR (17:15)
[2018-07-17] MEDS ORDERED: ALBUTEROL/IPRATROPIUM 3 ML NEB NEB ONE (17:15)
--- NOTE | 2018-07-17 17:32 | Diagnostic Imaging Report ---
EXAMINATION: CHEST SINGLE (PORTABLE) INDICATION: ^SOB ^[id number] ^[id number] COMPARISON: Chest radiograph 05/31/2018 FINDINGS: AP view TUBES and LINES: None. LUNGS: Lungs are well inflated. The resolution of the bilateral hilar peribronchial wall thickening. Increased airspace opacity in the left retrocardiac region. PLEURA: Small left pleural effusion, increased. No pneumothorax. HEART AND MEDIASTINUM: The cardiomediastinal silhouette is unremarkable. BONES AND SOFT TISSUES: No acute osseous lesion. Soft tissues are unremarkable. UPPER ABDOMEN: No free air under the diaphragm. IMPRESSION: Increased left retrocardiac consolidation with adjacent small left pleural effusion concerning for pneumonia. Recommend follow-up chest radiograph in 4-6 weeks. If not signs of infection, then recommend CT chest with IV contrast for further evaluation. Signed by: Dr. Jessy Ravi M.D. on 07/17/2018 5:29 PM
[2018-07-17] MEDS ORDERED: CALAN SR240 MG PO (17:34)
[2018-07-17] MEDS ORDERED: FLOMAX0.4 MG PO (17:34)
[2018-07-17] MEDS ORDERED: XARELTO20 MG PO (17:34)
[2018-07-17] MEDS ORDERED: LISINOPRIL20 MG PO (17:34)
[2018-07-17] MEDS ORDERED: LORAZEPAM1 MG PO (17:34)
[2018-07-17] MEDS ORDERED: SODIUM CHLORIDE 0.9% 500ML 500 ML ONE (17:44)
[2018-07-17] MEDS ORDERED: SODIUM CHLORIDE 0.9% 500ML 500 ML IV ONE (18:00)
[2018-07-17] MEDS ORDERED: VANCOMYCIN HCL 1GM/NS 250 ML BAG IV SCH (19:45)
[2018-07-17] MEDS ORDERED: ACETAMINOPHEN 325 MG TAB PO PRN (19:45)
[2018-07-17] MEDS ORDERED: AZITHROMYCIN 500MG/SOD CHL 0.9% 250ML BAG IV SCH (20:00)
[2018-07-17] MEDS ORDERED: LISINOPRIL10 MG PO (20:02)
[2018-07-17] MEDS ORDERED: LEXAPRO10 MG PO (20:02)
[2018-07-17] MEDS ORDERED: LUMIGAN2.5 M1 OP (20:03)
[2018-07-17] MEDS ORDERED: VITAMIN D35000 UNI1 PO (20:03)
[2018-07-17] MEDS ORDERED: COMBIGAN EYE DRO5 ML OP (20:04)
--- OUTSIDE RECORDS SUMMARY | 2018-07-17 20:07 | XMS REPORT | Clinical Summary ---
Author Author [facility] [employer] Organization [facility] Address Unknown Phone Unavailable Care Team Providers Care Grass Farmer Name Role Phone Asked, No Pcp PCP [...] AND Present [place] B O CIGRACQUEL MENDEZ [facility] xxxxxxxxx 2016- Present Advance Directives Patient has advance care planning documents on file. For more information, marina garsia contact: Rick Stovall [address] [place] [address]
[2018-07-17] MEDS ORDERED: CEFTRIAXONE SOD 1 GRAM/0.9% SOD CHL 50ML BAG IV SCH (20:15)
[2018-07-17] MEDS ORDERED: VANCOMYCIN 1GM/NS 250 ML 250 ML IV SCH (20:30)
[2018-07-17] MEDS: SODIUM CHLORIDE 0.9% 1000ML 1,000 ML IV SCH (20:30)
[2018-07-17 21:05] VITALS: BP 112/53
[2018-07-17] MEDS: AZITHROMYCIN 500MG/SOD CHL 0.9% 250ML BAG IV SCH (23:54)
[2018-07-18] VITALS (9 sets, daily range): BP systolic 104–172; BP diastolic 52–71
[2018-07-18] MEDS: ALBUTEROL SULF 0.083% NEB SOLN 3 ML NEB NEB SCH ×6 (00:14→20:24)
[2018-07-18] MEDS ORDERED: CEFEPIME 1GM/NS 0.9% 50 ML 50 ML IV SCH (00:15)
[2018-07-18 00:52] LABS: CREATINE KINASE MB 1.8 ng/mL (0-5.0)
[2018-07-18] MEDS: VANCOMYCIN 1GM/NS 250 ML 250 ML IV SCH (00:59)
[2018-07-18] MEDS: CEFEPIME 1GM/NS 0.9% 50 ML 50 ML IV SCH ×2 (02:16→14:47)
--- NOTE | 2018-07-18 02:41 | History and Physical ---
HISTORY OF PRESENT ILLNESS: This is a 77-year-old white male with past medical history positive for hypertension, history of chronic shortness of breath. Last workup was done here when she was seen by Cardiology, Dr. Fontenot, who found no evidence of any cardiac disease to explain the shortness of breath. He had an elevated right hemidiaphragm, which was thought to be the culprit of the shortness of breath. He was supposed to follow up with Dr. Valencia, but he could not make it because his shortness of breath came back again, so he is admitted to the hospital. REVIEW OF SYSTEMS: CARDIOVASCULAR: He has no chest pain or palpitation. RESPIRATORY: He does have shortness of breath on exertion. GASTROINTESTINAL: No nausea, vomiting, or diarrhea. GENITOURINARY: No frequency. No dysuria. ALLERGIES: LISTED IN THE CHART. SOCIAL HISTORY: He does not smoke. He does not drink. PAST MEDICAL HISTORY: Positive for elevated right hemidiaphragm, hypertension, obesity, and chronic shortness of breath. PHYSICAL EXAMINATION: HEART: Showed irregularly irregular heart rate. Normal S1 and S2 sound. LUNGS: Clear bilaterally. ABDOMEN: Soft. EXTREMITIES: Show no evidence of cyanosis or trauma. Chest x-ray sugar is still pending. Blood work still pending. The patient came to the emergency room right now, so a workup is actually in process. FINAL IMPRESSION: 1. Dyspnea. 2. Acute atrial fibrillation. 3. Elevated right hemidiaphragm. 4. Obesity. 5. Hypertension. PLAN OF TREATMENT: The patient is going to get some diuretics, heart rate controlled, we are waiting for the chest x-ray report, we are going to consult Dr. Vega for Pulmonary and Dr. Fontenot for Cardiology and depending on the workup, will be the rest of the treatment. Right now the oxygen saturation is 99%. He is on oxygen right now. MD MOMO Rsoenberg/INESSA /[id number]
[2018-07-18] MEDS: IPRATROPIUM BROMIDE 0.02% 2.5 ML NEB NEB SCH ×4 (03:00→20:21)
[2018-07-18 07:57] LABS: INR 1.28; PROTHROMBIN TIME 16.6 seconds (11.9-14.5)
[2018-07-18 08:14] LABS: CREATINE KINASE MB 2.1 ng/mL (0-5.0)
--- NOTE | 2018-07-18 10:38 | Consultation ---
DATE OF CONSULTATION: 07/17/2018 Pulmonary Medicine Consult REASON FOR REFERRAL: Shortness of breath. HISTORY OF PRESENT ILLNESS: Mr. Campa is a pleasant 77-year-old gentleman with shortness of breath. The patient presented with worsening starting 24 hours ago. Symptoms are gradual in onset. It was worsening that was elicited by walking and exertion. Symptoms were improved by resting. Due to pattern of worsening, the patient came to the emergency room. In the emergency room, chest x-ray was done and shows left increased retrocardiac consolidation with adjacent smaller pleural effusion concerning for pneumonia. In addition, lower extremity venous Dopplers were done showing no DVT on left leg. The patient was admitted for shortness of breath just over a month ago. He was treated for hyperventilation and possible asthma. The patient as outpatient was taken Trelegy recently inhaler. The patient is not on room oxygen. After the hospitalization, he recovered 50% of energy and strength. He uses a walker to ambulate. PAST MEDICAL HISTORY: Hypertension, DVT, parathyroid abnormality, May 2018 left heart catheterization with luminal irregularities only and greater than 70% left ventricular ejection fraction. MEDICATIONS: Medication list was reviewed per the chart record. ALLERGIES: NO KNOWN DRUG ALLERGIES. SOCIAL HISTORY: The patient smoked for seven years at 2-1/2 packs per day, but quit in 1966. The patient quit drinking, but never drank excessively. No drug use. 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 FAMILY HISTORY: Noncontributory. REVIEW OF SYSTEMS: GENERAL: There is intentional weight loss of 40 pounds in six months. HEENT: No mouth ulcers. ENDOCRINE: No thyroid abnormality recently diagnosed. LUNGS: No hemoptysis. CARDIAC: No heart attacks. GI: No constipation. : No blood in urine. NEUROLOGIC: No seizures. MUSCULOSKELETAL: Mild arthritis. DERMATOLOGIC: No rashes. PSYCHIATRIC: No depression. OBJECTIVE: VITAL SIGNS: Afebrile, vital signs stable and reviewed per the chart record. GENERAL: In no acute distress, alert and calm. HEENT: Normocephalic and atraumatic. NECK: Supple. Throat midline. LUNGS: Bilateral air entry, decreased breath sounds especially in the left side. CARDIOVASCULAR: S1, S2. No murmurs, rubs, or gallops. ABDOMEN: Soft and obese. EXTREMITIES: No clubbing, no cyanosis, but there is 1+ leg edema. INTEGUMENT: No rash or purpura. LABORATORY DATA: 4.3 potassium, 25 BUN, 1.1 creatinine. 11 white count, 34 hematocrit. 275 platelets. IMPRESSION AND PLAN: 1. Shortness of breath, multifactorial. 2. Hypoventilation, elevated left hemidiaphragm. 3. Pneumonia. 4. Possible asthma. 5. 15 pack-year lifetime smoker, quit. 6. Obesity, possible sleep apnea. 7. History of deep vein thrombosis in the past. 8. History of parathyroid abnormality. 9. Hypertension. Recheck INR tomorrow. Consider starting anticoagulation. Continue antibiotics for pneumonia. Follow vancomycin levels. Additional IV fluid is okay. If the effusion significantly increases on chest x-ray, may need CAT scan or drainage. Continue nebulized treatment. We will consider IgG level. Consider physical therapy evaluation after it demonstrated stabilization. Thank you very much, Dr. Green for allowing me a chance to participate in the care of Mr. Campa. Please call for questions. MD DAGOBERTO Raymond/INESSA /[id number]
[2018-07-18] MEDS: SODIUM CHLORIDE 0.9% 1000ML 1,000 ML IV SCH (14:47)
[2018-07-18 17:33] LABS: CREATINE KINASE 45 IU/L (30-200)
--- NOTE | 2018-07-18 18:55 | Consultation ---
DATE OF CONSULTATION: 07/18/2018 Cardiology Consultation REASON FOR CONSULTATION: Atrial fibrillation and shortness of breath. HISTORY OF PRESENT ILLNESS: This is a 77-year-old man with history of hypertension, mild nonobstructive coronary artery disease, chronic diastolic heart failure, history of deep venous thrombosis, and chronic dyspnea, who presented to the emergency department with progressively worsening shortness of breath. The patient states that his shortness of breath had been persistently worsening over the last couple of days, occurred at rest, moderate in intensity, associated with occasional cough, subjective fatigue and malaise. He denies any chest pain. Upon arrival here, he was noted to be in atrial fibrillation. REVIEW OF SYSTEMS: A 12-point review of system was conducted, is negative otherwise as stated above in the HPI. PAST MEDICAL HISTORY: As stated above in the HPI. PAST SURGICAL HISTORY: Cardiac catheterization. PAST FAMILY HISTORY: No premature coronary artery disease or sudden cardiac . SOCIAL HISTORY: No current illicit drug, alcohol, or tobacco use. ALLERGIES: NO KNOWN DRUG ALLERGIES. MEDICATIONS: See medication reconciliation form. PHYSICAL EXAMINATION: VITAL SIGNS: Temperature is 97, heart rate is 83, respirations are 18, blood pressure is 104/56, oxygen saturation 97% on 2 L nasal cannula. GENERAL: He is a chronically ill-appearing elderly male, lying comfortably in bed. HEAD: Normocephalic, atraumatic. EYES: Extraocular muscles intact. Conjunctiva is clear. NECK: No JVD. No bruits. CARDIOVASCULAR: He has regular rate and rhythm. No murmurs. LUNGS: Diminished breath at the bases. ABDOMEN: Soft, nontender, nondistended. EXTREMITIES: Trace edema. VASCULAR: Diminished pulses. SKIN: Warm, dry, and intact. NEUROLOGIC: No focal deficits noted. MEDICATIONS: Reviewed. LABORATORY DATA: Hemoglobin 11.2, creatinine 1.1, potassium 4.3. Troponins negative x3. Previous left heart catheterization revealed mild nonobstructive coronary artery disease. Echocardiogram showed preserved left ventricular systolic function 55% to 60%. Chest x-ray shows increased left retrocardiac consolidation with small left pleural effusion. Lower extremity venous Doppler showed deep venous thrombosis with a hematoma in the left lower leg. IMPRESSION: 1. Shortness of breath. 2. Pneumonia. 3. Former tobacco use. 4. History of deep venous thrombosis. 5. Nonobstructive coronary artery disease. 6. Hypertension. 7. Atrial fibrillation. RECOMMENDATIONS: Continue current infectious treatment per primary team. The patient may require re-initiation of anticoagulation. However, the patient appears unsteady and has a recent fall out of his bed. No evidence of acute coronary syndrome or acute heart failure at this point in time. Regarding his atrial fibrillation, it appears that he has converted to normal sinus rhythm. We will recheck a 12-lead electrocardiogram. This is likely driven by his pneumonia. Unclear if this is his first or he is having paroxysms of atrial fibrillation. DO YELENA Roblero/MODL /[id number]
--- NOTE | 2018-07-18 19:00 | Progress Note ---
DATE: 07/18/2018 Internal Medicine Progress Note SUBJECTIVE: The patient is feeling better. OBJECTIVE: VITAL SIGNS: Blood pressure 115/58, temperature 96.0, heart rate 81 per minute, respiratory rate 18 per minute, and oxygen saturation 94%. HEART: Irregularly irregular heart rate. No murmur or added sound. LUNGS: Clear bilaterally. ABDOMEN: Soft. EXTREMITIES: No evidence of cyanosis, edema, or trauma. LABORATORY DATA: On the BMP; sodium 136, potassium 4.3, chloride 102, CO2 28, BUN 25, creatinine 1.19, and glucose 113. On the CBC; white blood count 10.5, hemoglobin 11.2, hematocrit 33.7, and platelet count 275,000. PT 16.3, INR 1.2, APTT 46.9. AST 10, ALT 7, total bilirubin 0.7, and alkaline phosphatase 92. FINAL IMPRESSION: 1. Dyspnea. 2. Chronic atrial fibrillation. 3. Elevated right hemidiaphragm. 4. Obesity. 5. Hypertension. 6. Left retrocardiac pneumonia. PLAN OF TREATMENT: Albuterol q.4 hours, Atrovent q.6 hours, vancomycin 1 g IV once a day, cefepime 1 g IV twice a day, normal saline at 75 mL an hour, Zithromax 500 mg p.o. q.24 hours plus rest of the medications including anticoagulation, including verapamil. He is taking Xarelto for anticoagulation. Dr. Gayle has been consulted from the Cardiac point of view, Dr. Vega from Pulmonary point of view. MD MOMO Rosenberg/INESSA /[id number]
[2018-07-19] MEDS: IPRATROPIUM BROMIDE 0.02% 2.5 ML NEB NEB SCH ×5 (00:14→23:15)
[2018-07-19] MEDS: AZITHROMYCIN 500MG/SOD CHL 0.9% 250ML BAG IV SCH ×2 (00:31→23:28)
[2018-07-19] MEDS: VANCOMYCIN 1GM/NS 250 ML 250 ML IV SCH (01:00)
[2018-07-19] MEDS: ZOLPIDEM TARTRATE 5 MG TAB PO PRN ×3 (01:04→21:09)
[2018-07-19] MEDS: CEFEPIME 1GM/NS 0.9% 50 ML 50 ML IV SCH ×2 (03:00→16:08)
[2018-07-19] MEDS: ALBUTEROL SULF 0.083% NEB SOLN 3 ML NEB NEB SCH ×6 (03:47→23:15)
[2018-07-19 04:00] VITALS: BP 138/61
[2018-07-19] MEDS: SODIUM CHLORIDE 0.9% 1000ML 1,000 ML IV SCH (05:28)
--- NOTE | 2018-07-19 06:27 | Diagnostic Imaging Report ---
EXAMINATION: CHEST SINGLE (PORTABLE) COMPARISON: Chest x-ray 0 520/19 INDICATION: ^pneumonia DISCUSSION: Frontal view of the chest obtained at 0608 hours. HEART AND MEDIASTINUM: Stable morphology. LINES: None. LUNGS: Lower lung volumes resulting in increased prominence of the right hilum. Right infrahilar atelectasis. PLEURA: Stable small left pleural effusion. BONES AND SOFT TISSUES: No focal osseous lesion. The soft tissues are normal. IMPRESSION: Lower lung volumes with right basilar atelectasis. Stable left pleural effusion. Underlying pneumonia cannot be excluded. Signed by: Dr. Paras Grey MD on 07/19/2018 6:24 AM
[2018-07-19 07:45] VITALS: BP 172/81
[2018-07-19] MEDS: TAMSULOSIN HCL 0.4 MG CAP PO SCH (08:27)
[2018-07-19] MEDS: ESCITALOPRAM OXALATE 10 MG TAB PO SCH (08:27)
[2018-07-19] MEDS: VERAPAMIL HCL 180 MG TBER PO SCH (08:29)
[2018-07-19] MEDS: LISINOPRIL 10 MG TAB PO SCH (08:29)
[2018-07-19] MEDS: BRIMONIDINE/TIMOLOL (OPTH SOLN 5 ML DRPETTE OP SCH (08:37)
[2018-07-19 08:50] VITALS: BP 172/81
[2018-07-19] MEDS ORDERED: RIVAROXABAN 20 MG TABLET PO SCH ×2 (09:00→18:00)
[2018-07-19] MEDS ORDERED: BIMATOPROST(OPTH) 2.5 ML BOTTLE OP SCH ×2 (09:00→18:00)
[2018-07-19 11:06] VITALS: BP 153/67
--- NOTE | 2018-07-19 14:15 | Progress Note ---
DATE: 07/19/2018 Cardiology Progress Note SUBJECTIVE: The patient feeling much better. Breathing is still labored, however, improved. No chest pain or palpitations. OBJECTIVE: VITAL SIGNS: Temperature 97.4, heart rate is 80, respirations are 18, blood pressure is 153/67, and oxygen saturation is 100% on 2 L nasal cannula. GENERAL: He is a chronically ill-appearing elderly man, lying comfortably in bed. CARDIOVASCULAR: Regular rate and rhythm. No ectopy. No murmurs. LUNGS: Diminished breath sounds at bases. ABDOMEN: Soft, nontender, nondistended. EXTREMITIES: No edema. CARDIOVASCULAR MEDICATIONS: Reviewed. Telemetry monitoring revealed sinus tachycardia. IMPRESSION: 1. Shortness of breath. 2. Pneumonia. 3. Former tobacco use. 4. History of deep venous thrombosis. 5. Nonobstructive coronary artery disease. 6. Paroxysmal atrial fibrillation. RECOMMENDATIONS: The patient has remained in normal sinus rhythm. He is in atrial fibrillation, likely driven by his current infection. Telemetry monitoring has revealed no recurrent episodes of atrial fibrillation. He can continue anticoagulation with Xarelto 20 mg daily. Continue all the current cardiovascular medications. Ronnie Scott DO BM/MODL /[id number]
[2018-07-19] MEDS ORDERED: LACTULOSE SYRUP 20 GM/30 ML UDC PO PRN (15:15)
[2018-07-19 15:34] VITALS: BP 152/72
--- NOTE | 2018-07-19 17:25 | Progress Note ---
DATE: 07/19/2018 Internal Medicine Progress Note SUBJECTIVE: The patient is still complaining of shortness of breath. PHYSICAL EXAMINATION: VITAL SIGNS: Blood pressure 153/67, temperature 96.8, heart rate 71 per minute, respiratory rate 17 per minute, oxygen saturation is 100%. HEART: Showed irregularly irregular heart rate. Normal S1, S2 sound. LUNGS: Clear bilaterally. No rales. No crackles. No wheezing. ABDOMEN: Soft. EXTREMITIES: Show no evidence of cyanosis or hematoma. LABORATORY DATA: On the BMP; sodium 136, potassium 4.3, chloride 102, CO2 28, BUN 25, creatinine 1.19, glucose 113. On the CBC; white count 10.5, hemoglobin 11.2, hematocrit 33.7, platelet count 275,000. PT 16.6, PTT 46.9, INR 1.28. AST 10, ALT 7, total bilirubin 0.7, alkaline phosphatase 92%. FINAL IMPRESSION: 1. Dyspnea. 2. Elevated left hemidiaphragm. 3. Chronic atrial fibrillation. 4. Obesity. 5. Hypertension. 6. Left lower lobe pneumonia. PLAN OF TREATMENT: We are going to continue albuterol q.4 hours, Atrovent q.6 hours, vancomycin 1 g IV once a day cefepime 1 g IV twice a day, brimonidine tartrate one drop to each eye daily, verapamil 180 mg daily, citalopram 10 mg daily, Ambien 10 mg at night p.r.n. for sleep, Tylenol 650 mg q.4 hours as needed, lisinopril 20 mg daily, bimatoprost 1 drop to each eye daily, Zithromax 500 mg IV for 24 hours, Flomax 0.4 mg daily, Xarelto 20 mg daily. We are going to get also a Neurology consult with Dr. Olmos because of the elevated left hemidiaphragm. I discussed the case with Dr. Vega. We are going to continue current antibiotic therapy. MD MOMO Rosenberg/INESSA /[id number]
[2018-07-19] MEDS: DOCUSATE SODIUM 100 MG CAP PO SCH (17:26)
[2018-07-19 20:28] VITALS: BP 127/70
[2018-07-20] VITALS (8 sets, daily range): BP systolic 140–166; BP diastolic 65–73
[2018-07-20] MEDS: VANCOMYCIN 1GM/NS 250 ML 250 ML IV SCH (01:00)
[2018-07-20] MEDS: SODIUM CHLORIDE 0.9% 1000ML 1,000 ML IV SCH ×4 (01:35→22:34)
[2018-07-20] MEDS: CEFEPIME 1GM/NS 0.9% 50 ML 50 ML IV SCH ×2 (02:18→14:52)
[2018-07-20] MEDS: ALBUTEROL SULF 0.083% NEB SOLN 3 ML NEB NEB SCH ×6 (03:00→23:00)
[2018-07-20] MEDS: IPRATROPIUM BROMIDE 0.02% 2.5 ML NEB NEB SCH ×5 (06:45→23:00)
[2018-07-20] MEDS: DOCUSATE SODIUM 100 MG CAP PO SCH ×2 (08:31→17:57)
[2018-07-20] MEDS: ESCITALOPRAM OXALATE 10 MG TAB PO SCH (08:31)
[2018-07-20] MEDS: TAMSULOSIN HCL 0.4 MG CAP PO SCH (08:31)
[2018-07-20] MEDS: LISINOPRIL 10 MG TAB PO SCH (08:31)
[2018-07-20] MEDS: VERAPAMIL HCL 180 MG TBER PO SCH (08:32)
[2018-07-20] MEDS: BRIMONIDINE/TIMOLOL (OPTH SOLN 5 ML DRPETTE OP SCH (08:33)
[2018-07-20] MEDS: BIMATOPROST(OPTH) 2.5 ML BOTTLE OP SCH (17:57)
[2018-07-20] MEDS: RIVAROXABAN 20 MG TABLET PO SCH (17:57)
[2018-07-20] MEDS ORDERED: IMMU GLOBULIN GAMMA IV ONE (18:00)
--- NOTE | 2018-07-20 19:21 | Progress Note ---
DATE: 07/20/2018 Internal Medicine Progress Note The patient is going to be started on gammaglobulin as I said and also Mestinon 60 mg q.8 hours. He is demanding also regular diet. MD MOMO Rosenberg/INESSA /[id number]
--- NOTE | 2018-07-20 20:51 | Progress Note ---
DATE: 07/20/2018 Internal Medicine Progress Note SUBJECTIVE: A 77-year-old male, who came with shortness of breath. He was found to have a small pneumonia. He was also found to have myasthenia gravis exacerbation by Dr. Olmos, neurologist. He is going to get IV gammaglobulin and transferred to ICU. PHYSICAL EXAMINATION: VITAL SIGNS: Blood pressure 152/67, temperature 96.8, heart rate 71 per minute, respiratory rate 17 per minute, and oxygen saturation 100%. HEART: Showed regular rhythm. Normal S1, S2 sound. LUNGS: Clear bilaterally. ABDOMEN: Soft. LABORATORY DATA: On the BMP, sodium 136, potassium 4.3, chloride 102, CO2 of 28, BUN 25, creatinine 1.19, and glucose 113. On CBC, white blood count 10.5, hemoglobin 11.2, hematocrit 33.7, and platelet count 275,000. PT 16.6, INR 1.28, PTT 46.9. AST 10, ALT 7, total bilirubin 0.7, and alkaline phosphatase 92. IMPRESSION: 1. Pneumonia. 2. Myasthenia gravis exacerbation. 3. [id number]-cowyxyo renal failure, stage 3. 4. Hypertension with chronic renal insufficiency. 5. Chronic atrial fibrillation. PLAN OF TREATMENT: IV gammaglobulin will be starting today. Continue albuterol q.4 hours and Atrovent q.6 hours, vancomycin 1 g IV once a day, cefepime 1 g IV twice a day, brimonidine tartrate one drop daily, verapamil 180 mg daily, escitalopram 10 mg for Ambien 10 mg at night p.r.n. for sleep, Tylenol 650 mg q.4 hours as needed for pain or fever, lisinopril 20 mg daily, Bimatoprost ophthalmic solution one drop to each eye daily, Zithromax 500 mg IV once a day, Flomax 0.4 mg daily, and Xarelto 20 mg daily. The patient going to be moved to the ICU due to the diagnosis of myasthenia gravis exacerbation and also for the IV gammaglobulin. MD MOMO Rosenberg/INESSA /[id number]
[2018-07-20] MEDS: ZOLPIDEM TARTRATE 5 MG TAB PO PRN (21:55)
[2018-07-20] MEDS: PYRIDOSTIGMINE BROMIDE 60 MG TAB PO SCH (22:34)
--- NOTE | 2018-07-20 22:37 | Consultation ---
DATE OF CONSULTATION: 07/20/2018 Neurology Consult Note HISTORY OF PRESENT ILLNESS: Mr. Campa is a 77-year-old right-hand dominant man with past medical history significant for hypertension, newly diagnosed atrial fibrillation, and elevated left hemidiaphragm, chronicity unknown, admitted to [facility] on July 17, 2018, with acute on chronic worsening shortness of breath. Thus far, Mr. Campa has undergone extensive cardiac and pulmonary evaluations without the etiology of shortness of breath being identified. A neurological consultation is requested to evaluate for underlying neurological disease as the cause of the patient's shortness of breath. Mr. Campa reports fatigue and shortness of breath beginning approximately one year ago. Initially, the patient only experienced dyspnea on exertion. However, symptoms have gradually worsened over the past 12 months (proximally). At present, the patient is short of breath with lying down, sitting, inactive, and active. Beginning approximately 2 months ago, Mr. Campa noted dysphagia with solids more so than liquids. Around the same time, the patient noted worsening blurred vision. This occurs intermittently. Mr. Campa has attributed the worsened blurred vision to glaucoma. The patient noted a change in voice (higher pitch) and dysarthria beginning 1 to 2 months ago as well. Mr. Campa reports bilateral lower extremity weakness. He reports difficulty walking without falling. When asked if this is more to do with weakness in the legs or impairment of balance, the patient responds "both." Mr. Campa reports difficulty standing from a seated position as well. Lastly, the patient reports numbness affecting his left leg. However, this is chronic. It began following a lumbar spine surgery in the late or early . Mr. Campa does not report ptosis or paresthesias affecting any part of the body. The patient does report mild improvement of his symptoms with short periods of rest (20 to 30 minutes). To the patient's knowledge, there is no family history of nerve or muscle disorders. REVIEW OF SYSTEMS: Shortness of breath, anxiety, blurred vision, dysarthria, weakness of both legs, numbness of the left leg (chronic), impairment of balance and gait, neck pain (chronic). Otherwise, a 12-point review of systems is negative. PAST MEDICAL HISTORY: Hypertension, newly diagnosed atrial fibrillation, history of peptic ulcer disease, anxiety disorder, benign prostatic hypertrophy, and glaucoma. PAST SURGICAL HISTORY: Lumbar spine surgery, inguinal hernia repair x2, vasectomy, and bilateral laser eye surgery. PAST HOSPITALIZATIONS: Surgeries/procedures as listed, multiple hospitalizations for shortness of breath and chest pain. FAMILY MEDICAL HISTORY: Mr. Campa reports the only significant family medical history is hypertension and glaucoma. SOCIAL HISTORY: Mr. Campa is . 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 The patient does report a prior history of tobacco use. He smoked 2-1/2 packs per day from the time he was a teenager until 1966 when he quit smoking. The patient does report a prior history of heavy alcohol use. He quit drinking in 1966. The patient does not report current or prior recreational drug use. HOME MEDICATIONS: Lumigan, Combigan, vitamin D3 of 5000 units by mouth daily, Lexapro 10 mg by mouth daily, lisinopril 20 mg by mouth daily, Xarelto 20 mg by mouth daily, Flomax 0.4 mg by mouth daily, and verapamil ER 240 mg by mouth daily. HOSPITAL MEDICATIONS: Tylenol, Proventil nebulizer, azithromycin, Lumigan, Combigan, cefepime, Colace, Lexapro, Atrovent nebulizer, lactulose, lisinopril, Xarelto, Flomax, vancomycin, verapamil, and zolpidem tartrate. ALLERGIES: NO KNOWN DRUG ALLERGIES. NO KNOWN FOOD ALLERGIES. NO KNOWN ALLERGIES TO LATEX. NO KNOWN ALLERGIES TO IODINE OR OTHER CONTRAST MATERIALS. PHYSICAL EXAMINATION: VITAL SIGNS: Height 71 inches, weight 253.5 pounds, BMI 35.4 kg/m2, blood pressure 166/72 mmHg, pulse 77 beats per minute, respiratory rate 20 breaths per minute, and oxygen saturation 98% on 2 L by nasal cannula. GENERAL: The patient is awake and alert, moderately distressed. Morbidly obese. HEENT: Normocephalic and atraumatic. Pupils are surgical. Moist mucous membranes. NECK: Supple. No appreciable thyromegaly. No appreciable carotid bruits. CARDIOVASCULAR: S1, S2, regular rate and rhythm. No murmurs, rubs, or gallops. RESPIRATORY: Tachypneic. Decreased air movement at the left lung base. EXTREMITIES: The skin is warm and dry. No clubbing or cyanosis. There is trace pretibial pitting edema over the left foreleg. The posterior tibial and dorsalis pedis pulses are 1+ and symmetric. SKIN: No rashes or lesions. NEUROLOGIC: Memory/Attention: The patient is awake and alert, oriented to person, place, time, and situation. Cranial Nerves: Cranial nerve I - not tested. Cranial nerves II, III, IV, and - pupils are surgical. Extraocular movements are intact. No nystagmus. Positive for bilateral ptosis with worsening with sustained upgaze. Cranial nerve V - sensation to light touch and pinprick is intact in the bilateral V1 through V3 distributions. Strength in the temporalis and masseter muscles are within normal limits. Cranial nerve VII - the face is symmetric as are all facial movements. Strength is within normal limits. Cranial nerve VIII - hearing is diminished to finger rub on the left. Cranial nerves IX, X - the soft palate elevates equally and symmetrically. Cranial nerve XI - normal strength of the bilateral sternocleidomastoid and trapezius muscles. Cranial nerve XII - the tongue protrudes midline and moves symmetrically from [id number]. Strength: Bulk is normal. Strength is 5/5 in the bilateral deltoids, biceps, triceps, wrist flexors and extensors, finger flexors and extensors, intrinsic hand muscles, hip flexors, knee flexors and extensors, ankle dorsiflexion and plantar flexion, and intrinsic foot muscles except as follows: The bilateral deltoids are 4/5. There is decrement in strength with repeated assessment. The bilateral hip flexors are 4/5. There is decrement in strength with repeated assessment. Bilateral ankle dorsiflexion is 4+/5. Tone is normal. DTRs: Deep tendon reflexes are 2+ and symmetric at the triceps, biceps, and brachioradialis. Deep tendon reflexes are 1+ and symmetric at the patellas. Deep tendon reflexes are absent and symmetric at the Achilles. Plantar responses are flexor bilaterally. Sensation: Sensation is intact to light touch and pinprick in both arms and both legs. Gait: Deferred. Speech: Spontaneous speech is mildly dysarthric with a flaccid quality. No aphasia. Repetition is intact. Involuntary Movements: None. Pronator Drift: None. LABORATORY DATA: A comprehensive metabolic panel is significant for an estimated GFR of 59, elevated calcium of 11.7, total protein of 6.3, and albumin of 3.1. Cardiac enzymes are negative x4. B-natriuretic peptide 229.7. The CBC with differential and platelets reveals a white blood cell count of 10.55 with a left shift with 79.5% neutrophils, 7.7% lymphocytes, 11.6% monocytes, 0.6% eosinophils, and 0.1% basophils. The hemoglobin and hematocrit are 11.2 and 33.7, respectively. The platelet count is 275. PT 16.6, INR 1.28. From July 17, 2018, PTT 46.9. Blood cultures collected on July 17, 2018 revealed no growth after 48 hours. DIAGNOSTIC STUDIES: Electrocardiogram on 07/17/2018: Atrial fibrillation with rapid ventricular response at 101 beats per minute. Left lower extremity venous Doppler on 07/17/2018: 1. There is no evidence of vein thrombosis in the visualized vessels. 2. There is a 1.3 x 3.6 cm hematoma noted in the calf. Chest x-ray on 07/17/2018: Increased left retrocardiac consolidation with adjacent small left pleural effusion concerning for pneumonia. Recommend follow up chest radiograph in 4 to 6 weeks. If no signs of infection, then recommend CT chest with IV contrast for further evaluation. Of note, there is elevation of the left hemidiaphragm, present on all imaging studies of the chest since February 2018. Chest x-ray on 07/19/2018: Lower lung volumes with right basilar atelectasis. Stable left pleural effusion. Underlying pneumonia cannot be excluded. ASSESSMENT AND PLAN: Mr. Campa is a 77-year-old right-hand dominant man with past medical history as detailed, admitted to [facility] on July 17, 2018, with acutely worsening shortness of breath, dysphagia, blurred vision, dysarthria, weakness affecting both legs, and poor balance and gait. Of note, the aforementioned symptoms will improve mildly with short periods of rest. The patient's neurological examination is significant for mildly dysarthric speech with a flaccid quality, bilateral ptosis with worsening with sustained upgaze, and proximal muscle weakness with decrement in strength with repeated assessment. The patient's laboratory data and other diagnostic studies have been reviewed and are documented above. Based on the patient's description of his symptoms and the findings on neurological examination, I strongly suspect Mr. Campa has myasthenia gravis and is currently experiencing myasthenic crisis. Of note, while the patient does have elevation of the left hemidiaphragm, this is not due to myasthenia gravis. In my opinion, elevation of the left hemidiaphragm is not the cause of the patient's current symptoms. RECOMMENDATIONS: Are as follows: 1. A myasthenia gravis panel, anti-striated muscle antibody, and muscle enzymes will be ordered for further evaluation. 2. For myasthenic crisis, Mr. Campa will be treated with IVIG 2 g/kg intravenously divided over 5 days. The possible side effects of this medication were discussed in detail with the patient. 3. Treatment with Mestinon 60 mg by mouth 3 times daily will be initiated. 4. Defer treatment of the remaining medical comorbidities to the primary and other services following the patient. Thank you for this consultation. I will continue to follow the patient, while he remains in the hospital. TIME SPENT: 70 minutes. Lisa Olmos MD CP/MODL /[id number] MTDD
[2018-07-20 23:47] LABS: ABG PH 7.35 (7.31-7.41)
[2018-07-21] VITALS (9 sets, daily range): BP systolic 149–204; BP diastolic 60–84
[2018-07-21] MEDS ORDERED: LABETALOL HCL 5 MG/ML 20ML VIAL IV PRN (00:15)
[2018-07-21] MEDS ORDERED: HYDRALAZINE HCL 20 MG/ML VIAL IV PRN (00:15)
[2018-07-21] MEDS: HYDRALAZINE HCL 20 MG/ML VIAL IV PRN ×5 (00:20→22:18)
[2018-07-21] MEDS ORDERED: SODIUM CHLORIDE 0.9% 250ML 250 ML ONE (00:20)
[2018-07-21] MEDS: AZITHROMYCIN 500MG/SOD CHL 0.9% 250ML BAG IV SCH ×2 (00:42→23:27)
[2018-07-21] MEDS ORDERED: IMMU GLOBULIN,GAMMA (IGG) 400 ML IV ONE ×2 (01:00→17:00)
[2018-07-21] MEDS: CEFEPIME 1GM/NS 0.9% 50 ML 50 ML IV SCH ×2 (02:26→15:28)
[2018-07-21] MEDS: IPRATROPIUM BROMIDE 0.02% 2.5 ML NEB NEB SCH ×6 (03:20→23:35)
[2018-07-21] MEDS: ALBUTEROL SULF 0.083% NEB SOLN 3 ML NEB NEB SCH ×6 (03:20→23:30)
[2018-07-21] MEDS: PYRIDOSTIGMINE BROMIDE 60 MG TAB PO SCH ×3 (05:30→21:08)
[2018-07-21 05:57] LABS: ANION GAP 9.5 mmol/L (8-16); BLOOD UREA NITROGEN 9 mg/dL (7-26); BUN/CREATININE RATIO 11 (6-25); CARBON DIOXIDE 26 mmol/L (22-29); CHLORIDE 104 mmol/L (98-107); EST GLOMERULAR FILTRATION RATE > 60 ML/MIN (60-); GLUCOSE 115 mg/dL (74-118); POTASSIUM 3.5 mmol/L (3.5-5.1); SODIUM 136 mmol/L (136-145)
[2018-07-21] MEDS: LORAZEPAM 1 MG TAB PO PRN ×2 (06:28→20:49)
[2018-07-21] MEDS: LISINOPRIL 20 MG TAB PO SCH (09:10)
[2018-07-21] MEDS: TAMSULOSIN HCL 0.4 MG CAP PO SCH (09:10)
[2018-07-21] MEDS: DOCUSATE SODIUM 100 MG CAP PO SCH ×2 (09:10→17:29)
[2018-07-21] MEDS: VERAPAMIL HCL 180 MG TBER PO SCH (09:10)
[2018-07-21] MEDS: ESCITALOPRAM OXALATE 10 MG TAB PO SCH (09:10)
[2018-07-21] MEDS: BRIMONIDINE/TIMOLOL (OPTH SOLN 5 ML DRPETTE OP SCH (09:10)
[2018-07-21] MEDS ORDERED: IMMU GLOBULIN GAMMA IV ONE (10:00)
[2018-07-21] MEDS ORDERED: SALINE 0.65% NAS SOLN 1 SPRAY BTL PRN (11:15)
[2018-07-21] MEDS: FLUTICASONE PROPIONATE NASAL SPRAY NS PRN (14:27)
[2018-07-21] MEDS: SODIUM CHLORIDE 0.9% 1000ML 1,000 ML IV SCH ×2 (15:00→18:02)
[2018-07-21] MEDS: RIVAROXABAN 20 MG TABLET PO SCH (17:29)
[2018-07-21] MEDS: BIMATOPROST(OPTH) 2.5 ML BOTTLE OP SCH (17:49)
--- NOTE | 2018-07-21 18:26 | Progress Note ---
DATE: 07/21/2018 Cardiology Progress Note SUBJECTIVE: No major events overnight. Sleeping comfortably in chair. OBJECTIVE: VITAL SIGNS: Temperature afebrile, pulse 78, respiratory rate 20, blood pressure 129/60, and saturating 99% on nasal cannula. GENERAL: Elderly obese, chronically ill-appearing man in no acute distress. CARDIOVASCULAR: Regular rate and rhythm. No murmurs, rubs, or gallops. LUNGS: Diminished breath sounds at the bases, otherwise clear to auscultation. ABDOMEN: Obese, soft, nontender, nondistended. NEURO AND PSYCH: Alert and oriented. CARDIOVASCULAR MEDICATIONS: Reviewed. TELEMETRY DATA: Reviewed, shows sinus tachycardia. ASSESSMENT AND PLAN: 1. Shortness of breath. 2. Pneumonia. 3. History of smoking. 4. History of deep vein thrombosis. 5. Nonobstructive coronary artery disease. 6. Paroxysmal atrial fibrillation. RECOMMENDATIONS: The patient remains in normal sinus rhythm. Continue current cardiovascular medications, he is improving clinically. Defer to primary team for management of his pneumonia and respiratory issues. Thank you for this consult. We will continue to follow. MD TUNG DongP/PASTORL /[id number]
[2018-07-21] MEDS: ZOLPIDEM TARTRATE 5 MG TAB PO PRN (20:49)
[2018-07-22] VITALS (7 sets, daily range): BP systolic 147–195; BP diastolic 66–84
[2018-07-22] MEDS: CEFEPIME 1GM/NS 0.9% 50 ML 50 ML IV SCH ×2 (03:55→15:02)
[2018-07-22] MEDS: ALBUTEROL SULF 0.083% NEB SOLN 3 ML NEB NEB SCH ×6 (04:00→22:25)
[2018-07-22] MEDS: IPRATROPIUM BROMIDE 0.02% 2.5 ML NEB NEB SCH ×6 (04:00→22:25)
[2018-07-22] MEDS: HYDRALAZINE HCL 20 MG/ML VIAL IV PRN (06:04)
[2018-07-22] MEDS: PYRIDOSTIGMINE BROMIDE 60 MG TAB PO SCH ×3 (07:10→21:46)
[2018-07-22] MEDS: LORAZEPAM 1 MG TAB PO PRN ×2 (07:10→21:46)
[2018-07-22] MEDS: BRIMONIDINE/TIMOLOL (OPTH SOLN 5 ML DRPETTE OP SCH (08:19)
[2018-07-22] MEDS: TAMSULOSIN HCL 0.4 MG CAP PO SCH (08:20)
[2018-07-22] MEDS: DOCUSATE SODIUM 100 MG CAP PO SCH ×2 (08:20→17:31)
[2018-07-22] MEDS: LISINOPRIL 20 MG TAB PO SCH (08:20)
[2018-07-22] MEDS: ESCITALOPRAM OXALATE 10 MG TAB PO SCH (08:20)
[2018-07-22] MEDS: VERAPAMIL HCL 180 MG TBER PO SCH (08:20)
[2018-07-22] MEDS: FLUTICASONE PROPIONATE NASAL SPRAY NS PRN (08:21)
--- NOTE | 2018-07-22 08:36 | Diagnostic Imaging Report ---
EXAMINATION: CHEST SINGLE (PORTABLE) INDICATION: ^pna sob ^[id number] ^0800 COMPARISON: 07/19/2018 FINDINGS: AP view TUBES and LINES: None. LUNGS: Limited by body habitus and low lung volumes. Central vascular congestion. Unchanged mild left basilar opacification. PLEURA: No pleural effusion or pneumothorax. HEART AND MEDIASTINUM: The cardiac silhouette is obscured. BONES AND SOFT TISSUES: No acute osseous lesion. Soft tissues are unremarkable. UPPER ABDOMEN: No free air under the diaphragm. IMPRESSION: Limited as above. Unchanged central vascular congestion and left basilar opacification, representing small effusion/atelectasis or pneumonia in the appropriate clinical context. Signed by: Dr. Jay Jay Manriquez MD on 07/22/2018 8:33 AM
[2018-07-22] MEDS: IMMUNE GLOBULIN IV SCH (09:15)
[2018-07-22] MEDS ORDERED: VERAPAMIL HCL 80 MG TAB PO NR (10:45)
[2018-07-22] MEDS ORDERED: FUROSEMIDE INJ 10 MG/ML 4 ML VIAL IV NR (14:15)
[2018-07-22] MEDS ORDERED: POTASSIUM CHLORIDE 20 MEQ TAB CR PO NR (14:15)
[2018-07-22] MEDS: SODIUM CHLORIDE 0.9% 1000ML 1,000 ML IV SCH (16:15)
[2018-07-22] MEDS: SALINE 0.65% NAS SOLN 1 SPRAY BTL SCH (17:09)
[2018-07-22] MEDS: BIMATOPROST(OPTH) 2.5 ML BOTTLE OP SCH (17:31)
[2018-07-22] MEDS: RIVAROXABAN 20 MG TABLET PO SCH (17:31)
--- NOTE | 2018-07-22 18:04 | Progress Note ---
DATE: 07/22/2018 Cardiology Progress Note SUBJECTIVE: No major events overnight. OBJECTIVE: VITAL SIGNS: Temperature afebrile, pulse 68, respiratory rate 22, blood pressure 146/66, and saturating 100% on nasal cannula. GENERAL: Elderly man, in no acute distress. CARDIOVASCULAR: Regular rate and rhythm. No murmurs, rubs, or gallops. LUNGS: Diminished breath sounds at the bases, otherwise clear to auscultation anteriorly. ABDOMEN: Obese, soft, nontender, and nondistended. NEURO AND PSYCH: Alert and oriented. CARDIOVASCULAR MEDICATIONS: Reviewed. TELEMETRY DATA: Reviewed, shows sinus rhythm. ASSESSMENT: 1. Shortness of breath. 2. Pneumonia. 3. History of smoking. 4. History of deep venous thrombosis. 5. Nonobstructive coronary artery disease. 6. Paroxysmal atrial fibrillation. RECOMMENDATIONS: The patient remains in sinus rhythm. We will continue to monitor closely. Okay to be discharged from cardiovascular standpoint with outpatient followup. Thank you for this consult. We will continue to follow. MD MYRTLE Dong/INESSA /[id number]
[2018-07-22] MEDS: ZOLPIDEM TARTRATE 5 MG TAB PO PRN (21:46)
[2018-07-23] VITALS (7 sets, daily range): BP systolic 120–189; BP diastolic 58–81
[2018-07-23] MEDS: AZITHROMYCIN 500MG/SOD CHL 0.9% 250ML BAG IV SCH ×2 (00:07→23:14)
[2018-07-23] MEDS: ALBUTEROL SULF 0.083% NEB SOLN 3 ML NEB NEB SCH ×6 (02:30→23:10)
[2018-07-23] MEDS: IPRATROPIUM BROMIDE 0.02% 2.5 ML NEB NEB SCH ×6 (02:30→23:10)
[2018-07-23] MEDS: CEFEPIME 1GM/NS 0.9% 50 ML 50 ML IV SCH ×2 (02:33→15:23)
[2018-07-23] MEDS: PYRIDOSTIGMINE BROMIDE 60 MG TAB PO SCH ×3 (05:39→21:39)
[2018-07-23 06:13] LABS: BASOPHILS % 0.5 % (0.0-1.0); EOSINOPHILS # (AUTO) 0.1 (0.0-0.4); EOSINOPHILS % 2.6 % (0.0-6.0); HEMATOCRIT 30.3 % (38.2-49.6); HEMOGLOBIN 9.4 g/dL (14.0-18.0); LYMPHOCYTES # (AUTO) 0.6 (1.0-3.2); LYMPHOCYTES % 13.8 % (18.0-39.1); MEAN CORPUSCULAR HEMOGLOBIN 28.9 pg (28-32); MEAN CORPUSCULAR VOLUME 93.2 fL (81-99); MONOCYTES # (AUTO) 0.9 (0.2-0.8); MONOCYTES % 20.7 % (4.4-11.3); NEUTROPHILS # (AUTO) 2.6 (2.1-6.9); NEUTROPHILS % 61.9 % (38.7-80.0); PLATELET COUNT 230 x10e3/uL (140-360); RED BLOOD COUNT 3.25 x10e6/uL (4.3-5.7); RED CELL DISTRIBUTION WIDTH 13.3 % (11.7-14.4)
[2018-07-23 06:32] LABS: ALANINE AMINOTRANSFERASE 12 IU/L (0-55); ALBUMIN 2.6 g/dL (3.5-5.0); ALBUMIN/GLOBULIN RATIO 0.6 (0.8-2.0); ALKALINE PHOSPHATASE 78 IU/L (40-150); ANION GAP 8.2 mmol/L (8-16); BLOOD UREA NITROGEN 8 mg/dL (7-26); BUN/CREATININE RATIO 9 (6-25); CALCIUM 11.3 mg/dL (8.4-10.2); CARBON DIOXIDE 28 mmol/L (22-29); CHLORIDE 105 mmol/L (98-107); CREATININE, SERUM 0.85 mg/dL (0.72-1.25); EST GLOMERULAR FILTRATION RATE > 60 ML/MIN (60-); GLUCOSE 92 mg/dL (74-118); POTASSIUM 4.2 mmol/L (3.5-5.1); SODIUM 137 mmol/L (136-145)
[2018-07-23] MEDS: IMMUNE GLOBULIN IV SCH (09:00)
[2018-07-23] MEDS: SALINE 0.65% NAS SOLN 1 SPRAY BTL SCH ×2 (09:52→17:58)
[2018-07-23] MEDS: TAMSULOSIN HCL 0.4 MG CAP PO SCH (09:53)
[2018-07-23] MEDS: DOCUSATE SODIUM 100 MG CAP PO SCH ×2 (09:53→17:58)
[2018-07-23] MEDS: BRIMONIDINE/TIMOLOL (OPTH SOLN 5 ML DRPETTE OP SCH (09:53)
[2018-07-23] MEDS: VERAPAMIL HCL 120 MG TABSR PO SCH (09:53)
[2018-07-23] MEDS: LISINOPRIL 20 MG TAB PO SCH (09:54)
[2018-07-23] MEDS: ESCITALOPRAM OXALATE 10 MG TAB PO SCH (09:54)
[2018-07-23] MEDS: SODIUM CHLORIDE 0.9% 1000ML 1,000 ML IV SCH (12:49)
--- NOTE | 2018-07-23 16:23 | Progress Note ---
DATE: 07/23/2018 Internal Medicine Progress Note SUBJECTIVE: The patient is doing much, much better now. He has received the IVIG for the myasthenia gravis exacerbation. The patient's breathing has improved. We are going to continue with the IV antibiotics. PHYSICAL EXAMINATION: HEART: Showed regular rhythm. Normal S1, S2 sound. LUNGS: Clear bilaterally. ABDOMEN: Soft. FINAL IMPRESSION: 1. Anxiety. 2. Pneumonia. 3. Myasthenia gravis crisis. 4. [id number] renal failure, stage 3. 5. Hypertension with chronic renal insufficiency. 6. Chronic atrial fibrillation. PLAN OF TREATMENT: Continue albuterol and Atrovent q.4 hours. Continue cefepime 2 g IV twice a day. Continue IV immunoglobulin as prescribed by Neurology, brimonidine tartrate one drop to each eye daily, Colace 100 mg twice a day, Mestinon 60 mg q.8 hours, Flonase 1 inhalation daily. Continue Lexapro 10 mg daily, lactulose 20 g twice a day, lisinopril 30 mg daily, lorazepam 1 mg p.o. q.8 hours as needed for anxiety, Tylenol 650 mg q.4 hours as needed, Flomax 0.4 mg daily, bimatoprost one drop to each eye daily, hydralazine 10 mg IV q.2 hours as needed for hypertension, verapamil 240 mg daily, Zithromax 500 mg IV daily, Ambien 10 mg at night p.r.n. for sleep, Xarelto 20 mg daily, labetalol 20 mg q.8 hours as needed, and saline spray one inhalation twice a day. The patient has improved significantly. We are going to continue current medication regimen. Oxygen saturation 99%, doing well. MD MOMO Rosenberg/INESSA /[id number]
[2018-07-23] MEDS: RIVAROXABAN 20 MG TABLET PO SCH (17:59)
[2018-07-23] MEDS: BIMATOPROST(OPTH) 2.5 ML BOTTLE OP SCH (17:59)
--- NOTE | 2018-07-23 20:19 | Progress Note ---
DATE: 07/23/2018 Cardiology Progress Note SUBJECTIVE: No major events overnight. OBJECTIVE: VITAL SIGNS: Temperature afebrile, pulse 85, respiratory rate 24, blood pressure 158/72, and saturating 96% on nasal cannula. GENERAL: Elderly man, in no acute distress. CARDIOVASCULAR: Regular rate and rhythm. No murmurs, rubs, or gallops. LUNGS: Diminished breath sounds at the bases. Clear to auscultation otherwise. ABDOMEN: Obese, soft, nontender, nondistended. NEUROLOGIC AND PSYCHIATRIC: Alert and oriented. MEDICATIONS: Reviewed. TELEMETRY DATA: Reviewed, shows normal sinus rhythm. ASSESSMENT: 1. Paroxysmal atrial fibrillation. 2. Shortness of breath. 3. Pneumonia. 4. History of smoking. 5. History of DVT. 6. Non-obstructive coronary artery disease. RECOMMENDATIONS: The patient remains in normal rhythm. We will continue to monitor. Continue cardiovascular medications. MD MYRTLE Dong/INESSA /[id number]
[2018-07-23] MEDS: ZOLPIDEM TARTRATE 5 MG TAB PO PRN (21:38)
[2018-07-24] VITALS: BP 172/75
[2018-07-24] MEDS: HYDRALAZINE HCL 20 MG/ML VIAL IV PRN (00:48)
[2018-07-24] MEDS: IPRATROPIUM BROMIDE 0.02% 2.5 ML NEB NEB SCH ×4 (03:58→14:44)
[2018-07-24] MEDS: ALBUTEROL SULF 0.083% NEB SOLN 3 ML NEB NEB SCH ×4 (03:58→14:44)
[2018-07-24 04:00] VITALS: BP 161/67
[2018-07-24] MEDS: CEFEPIME 1GM/NS 0.9% 50 ML 50 ML IV SCH ×2 (04:00→16:50)
[2018-07-24] MEDS: PYRIDOSTIGMINE BROMIDE 60 MG TAB PO SCH ×2 (05:27→14:00)
[2018-07-24 06:43] LABS: BLOOD UREA NITROGEN 10 mg/dL (7-26); BUN/CREATININE RATIO 13 (6-25); CALCIUM 11.4 mg/dL (8.4-10.2); CARBON DIOXIDE 26 mmol/L (22-29); CHLORIDE 104 mmol/L (98-107); CREATININE, SERUM 0.79 mg/dL (0.72-1.25); EST GLOMERULAR FILTRATION RATE > 60 ML/MIN (60-); GLUCOSE 87 mg/dL (74-118); SODIUM 135 mmol/L (136-145)
[2018-07-24 08:25] VITALS: BP 184/72
[2018-07-24] MEDS: VERAPAMIL HCL 120 MG TABSR PO SCH (09:00)
[2018-07-24] MEDS: TAMSULOSIN HCL 0.4 MG CAP PO SCH (09:27)
[2018-07-24] MEDS: DOCUSATE SODIUM 100 MG CAP PO SCH ×2 (09:27→17:14)
[2018-07-24] MEDS: ESCITALOPRAM OXALATE 10 MG TAB PO SCH (09:27)
[2018-07-24] MEDS: LISINOPRIL 20 MG TAB PO SCH (09:28)
[2018-07-24] MEDS: SALINE 0.65% NAS SOLN 1 SPRAY BTL SCH ×2 (10:04→17:14)
[2018-07-24] MEDS: BRIMONIDINE/TIMOLOL (OPTH SOLN 5 ML DRPETTE OP SCH (10:04)
[2018-07-24] MEDS: SODIUM CHLORIDE 0.9% 1000ML 1,000 ML IV SCH (10:16)
[2018-07-24] MEDS: IMMUNE GLOBULIN IV SCH ×2 (10:23→16:25)
[2018-07-24 12:42] VITALS: BP 145/61
--- NOTE | 2018-07-24 14:48 | Progress Note ---
DATE: 07/24/2018 Cardiology Progress Note SUBJECTIVE: The patient is feeling somewhat better in regard to his respiratory status. No chest pain. OBJECTIVE: VITAL SIGNS: Temperature 96.6, heart rate is 78, respirations are 19, blood pressure is 184/72, ox saturation is 100% on 2 L nasal cannula. GENERAL: He is well appearing, well built, no apparent distress. CARDIOVASCULAR: Regular rate and rhythm. LUNGS: Diminished breath sounds at bases. Tachypnea is present. ABDOMEN: Soft, nontender, nondistended. EXTREMITIES: Hematoma on the left lower extremity. MEDICATIONS: Reviewed. LABORATORY DATA: Creatinine 0.79, hemoglobin 9.4 on July 23. Telemetry monitoring revealed normal sinus rhythm. IMPRESSION: 1. Paroxysmal atrial fibrillation. 2. Shortness of breath. 3. Myasthenia gravis crisis. 4. History of tobacco use. 5. History of deep vein thrombosis. 6. Nonobstructive coronary artery disease. RECOMMENDATIONS: The patient's telemetry monitoring has showed sustained normal sinus rhythm. Continue current cardiovascular medications. Titrate lisinopril to 40 mg daily for better blood pressure control. Continue IVIG and treatment for his myasthenia gravis. There are no significant cardiac causes for his shortness of breath. Ronnie Scott DO BM/MODL /[id number]
[2018-07-24 16:50] VITALS: BP 178/76
[2018-07-24] MEDS: RIVAROXABAN 20 MG TABLET PO SCH (17:14)
[2018-07-24] MEDS: BIMATOPROST(OPTH) 2.5 ML BOTTLE OP SCH (17:16)
--- NOTE | 2018-07-24 19:40 | Consultation ---
DATE OF CONSULTATION: 07/23/2018 Endocrine Consultation The patient of Dr. Green. Thank you very much for referring this patient. HISTORY OF PRESENT ILLNESS: This is a 77-year-old white male gentleman, who is referred to me for evaluation of hypercalcemia. The patient has history of hypercalcemia in the past and he was told that he might have hyperparathyroidism. The patient did not have any scans done for parathyroid. At this time, the patient comes to the emergency room with shortness of breath. He has history of coronary artery disease. He was found to have myasthenia gravis during this hospital stay. He also has history of hypertension and pneumonia. On physical examination today, there is no history of any kidney stones. No family history of hypercalcemia. PHYSICAL EXAMINATION: GENERAL: Today, the patient is alert, awake, little bit apprehensive. He is moderately overweight. VITAL SIGNS: His heart rate is around 70 and blood pressure 130/80 mmHg. HEENT: Essentially unremarkable. Thyroid is palpable. Clinically, he is near euthyroid. CHEST: Bilateral vesicular breathing. He has mild bronchospasm. CARDIAC: First and second heart sound. There is no third or fourth heart sounds . EXTREMITIES: The patient has bilateral pedal edema. CLINICAL IMPRESSION: 1. Hypercalcemia, probably related to hyperparathyroidism. 2. History of myasthenia gravis. 3. Coronary artery disease. 4. Congestive cardiac failure. 5. Hypertension. PLAN: The plan at this time to dose ionized calcium, serum PTH. We might do a scan on followup. The patient is being discharged and transferred to the [facility] where I can follow the patient. Thanks again for referring this patient. I will be following this patient with you. MD ROGELIO Menjivar/INESSA /[id number]
--- NOTE | 2018-07-25 07:06 | Discharge Summary ---
HOSPITAL COURSE: The patient is a 77-year-old male with past medical history positive for hypertension, history of chronic renal failure, history of chronic atrial fibrillation, came here with shortness of breath. He was found to have pneumonia. He was found to have myasthenia gravis crisis. He was started on IVIG by Dr. Olmos, Neurology. The patient is doing slightly better. PHYSICAL EXAMINATION: VITAL SIGNS: The blood pressure 145/61, temperature 96.5, heart rate is 80 per minute, respiratory rate 19 per minute, and oxygen saturation 98%. HEART: Showed regular rhythm. Normal S1, S2 sound. LUNGS: Clear bilaterally. ABDOMEN: Soft. EXTREMITIES: Show no evidence of cyanosis or hematoma. LABORATORY DATA: BMP; sodium 135, potassium 4.0, chloride 104, CO2 of 26, BUN 10, creatinine 0.79, glucose 87. CBC; white blood count 4.20, hemoglobin 9.4, hematocrit 30.3, platelet count of 130,000. PT 16.6, INR 1.2, APTT 46.9, AST 15, ALT 12, total bilirubin 0.6, alkaline phosphatase 88. FINAL IMPRESSION: 1. Pneumonia. 2. Myasthenia gravis crisis. 3. Acute renal failure. 4. Hypertension with renal insufficiency. 5. Chronic atrial fibrillation. 6. Hypercalcemia. PLAN OF TREATMENT: Continue the IVIG today, which is the last dose. Continue Atrovent q.4 hours. Continue cefepime 2 g IV twice a day. Continue Colace 100 mg twice a day. Continue Mestinon 60 mg q.8 hours, lorazepam 1 mg q.8 hours as needed, citalopram 10 mg daily, lactulose 20 g twice a day, hydralazine 10 mg IV q.2 hours as needed for hypertension, verapamil 240 mg daily, Flomax 0.4 mg daily, labetalol 20 mg IV q.4 hours as needed for hypertension; saline solution for nasal spray, one inhalation twice a day, Zithromax 500 mg once a day, Ambien 10 mg at night p.r.n. for sleep, Xarelto 20 mg daily, Flonase 1 inhalation daily, lisinopril 40 mg daily. The patient is going to be transferred to [facility]. Stevo Norma, MD LAS/INESSA /[id number]
[2018-07-25] MEDS ORDERED: LISINOPRIL 20 MG TAB PO SCH (09:00)
== END 2018-07-24 19:57 | DRG 56 ==
LOC: ER 14:58 → ERHOLD 20:05 → MED/SURG3 21:06 → MED/SURG 07-20 18:29
PROVIDERS: ADMIT Internal Medicine; ATTEND Internal Medicine
PROC: 30233S1 Transfusion of Nonautologous Globulin into Peripheral Vein, Percutaneous Approach (ICD-10-PCS; principal; 2018-07-20)
PROC: 5A09357 Assistance with Respiratory Ventilation, Less than 24 Consecutive Hours, Continuous Positive Airway Pressure (ICD-10-PCS; 2018-07-22)
DX: G70.01 Myasthenia gravis with (acute) exacerbation (principal); J18.9 Pneumonia, unspecified organism; Q79.1 Other congenital malformations of diaphragm; J96.00 Acute respiratory failure, unspecified whether with hypoxia or hypercapnia; I13.0 Hypertensive heart and chronic kidney disease with heart failure and stage 1 through stage 4 chronic kidney disease, or unspecified chronic kidney disease; I50.32 Chronic diastolic (congestive) heart failure; N17.9 Acute kidney failure, unspecified; I48.2 Chronic atrial fibrillation; N18.3 Chronic kidney disease, stage 3 (moderate); E21.3 Hyperparathyroidism, unspecified; I25.10 Atherosclerotic heart disease of native coronary artery without angina pectoris; S80.12XA Contusion of left lower leg, initial encounter; F41.9 Anxiety disorder, unspecified; E66.01 Morbid (severe) obesity due to excess calories; Z68.35 Body mass index [BMI] 35.0-35.9, adult; W06.XXXA Fall from bed, initial encounter; Y92.009 Unspecified place in unspecified non-institutional (private) residence as the place of occurrence of the external cause; Z87.891 Personal history of nicotine dependence; Z86.718 Personal history of other venous thrombosis and embolism; Z79.01 Long term (current) use of anticoagulants; R13.10 Dysphagia, unspecified; R47.1 Dysarthria and anarthria; N40.0 Benign prostatic hyperplasia without lower urinary tract symptoms; Z87.11 Personal history of peptic ulcer disease; H40.9 Unspecified glaucoma; I27.81 Cor pulmonale (chronic); R53.81 Other malaise
CPT/HCPCS: 36415; 71045; 80048; 80053; 82085; 82330; 82550; 82553; 82805; 83519; 83735; 83874; 83880; 83970; 84484; 85025; 85610; 85730; 86255; 86256; 87040; 93005; 93971; 94060; 94640; 94660; 96361; 96367; 96376; 97139; 99284; J0360; J0456; J0692; J0696; J1940; J3370; J7030; J7040; J7050